=== PATIENT | male | born 1990 ===

== ENCOUNTER 2023-07-14 09:57 | Inpatient (IN) | payer OTHER ==
[2023-07-14 11:16] LABS: BASO % 0.9 % (0-2.0); EOS % 0.3 % (0-4.5); HEMOGLOBIN 8.1 GM/dL (11.7-16.9); LYMPH % 20.6 % (8-40); MCHC 32.4 g/dl (32.0-35.9); MEAN CELL VOLUME 86.5 fl (80-96); MEAN PLT VOLUME 7.6 fl (7.5-11.1); MONO % 6.2 % (3.8-10.2); PLATELET COUNT 196 10^3/uL (134-434); RBC 2.89 M/mm3 (4.00-5.60); RDW 15.4 % (11.9-15.9); WHITE BLOOD COUNT 11.8 K/mm3 (4.0-10.0)
[2023-07-14 11:23] LABS: VENOUS BASE EXCESS -7.7 mmol/L (-2-2); VENOUS O2 SATURATION 87.1 % (70-80); VENOUS PCO2 28.8 mmHg (38-52); VENOUS PH 7.376 (7.310-7.410)
[2023-07-14 11:25] LABS: INR 1.74 (0.83-1.09); PROTHROMBIN TIME (PATIENT) 20.1 SEC (9.7-13.0)
[2023-07-14 11:28] LABS: ACTIVATED PTT 33.5 SECONDS (25.2-36.5)
[2023-07-14 11:35] LABS: POTASSIUM 5.3 mmol/L (3.5-5.1)
[2023-07-14 11:37] LABS: BLOOD UREA NITROGEN 60.1 mg/dL (7-18); CALCIUM 7.7 mg/dL (8.5-10.1)
[2023-07-14 11:38] LABS: ALBUMIN 1.9 g/dl (3.4-5.0)
[2023-07-14 11:42] LABS: BILIRUBIN,TOTAL 0.8 mg/dL (0.2-1); TOT PROT 6.3 g/dl (6.4-8.2)
[2023-07-14] MEDS ORDERED: HEPARIN NA (PORCINE) 5,000 UNITS/ML 1ML VIAL IVPUSH ONE (14:42)
[2023-07-14] MEDS ORDERED: HEPARIN NA (PORCINE) 5,000 UNITS/ML 1ML VIAL IVPUSH PRN ×3 (15:32→15:38)
[2023-07-14] MEDS ORDERED: LACTATED RINGERS SOLUTION 1,000 ML/1,000 ML INFUS.BAG IV ONE (15:36)
[2023-07-14] MEDS ORDERED: FUROSEMIDE 40 MG/4 ML INJECTABLE VIAL IVPUSH ONE (15:36)
[2023-07-14] MEDS ORDERED: SODIUM CHLORIDE 0.9% 500 ML INFUS.BAG IV ONE (15:40)
[2023-07-14] MEDS ORDERED: HEPARIN - 25,000 UNIT in SODIUM CHLORIDE 495 ML IV SCH (15:45)
[2023-07-14] MEDS ORDERED: HEPARIN NA (PORCINE) 5,000 UNITS/ML 1ML VIAL ONE (16:16)
[2023-07-14] MEDS ORDERED: HEPARIN INFUSION - 25,000 UNITS/500 ML INFUS.BAG IVPB ONE (16:16)
[2023-07-14] MEDS ORDERED: FUROSEMIDE 40 MG/4 ML INJECTABLE VIAL ONE (16:16)
[2023-07-14] MEDS: HEPARIN INFUSION - 25,000 UNITS/500 ML INFUS.BAG IVPB SCH (16:42)
[2023-07-14] MEDS ORDERED: PIPERACILLIN/TAZOB 2.25 GM 2.25 GM/50 ML BAG IVPB ONE (18:29)
[2023-07-14] MEDS: PIPERACILLIN/TAZOB 2.25 GM 2.25 GM in DEXTROSE 5%-WATER - 50 ML IVPB SCH ×2 (18:30→22:05)
[2023-07-14 19:55] LABS: POTASSIUM 5.3 mmol/L (3.5-5.1)
[2023-07-14 19:58] LABS: BLOOD UREA NITROGEN 65.3 mg/dL (7-18)
[2023-07-14 20:01] LABS: CREATININE 5.2 mg/dL (0.55-1.3)
[2023-07-14 21:57] LABS: ARTERIAL BLD GAS O2 SATURATION 98.6 % (95-98); ARTERIAL BLOOD GAS BASE EXCESS -7.2 mmol/L (-2-2); ARTERIAL BLOOD GAS PO2 130.7 mmHg (80-100); ARTERIAL BLOOD GAS pH 7.369 (7.350-7.450)
[2023-07-14 21:58] LABS: EPI CELLS >36 /uL (0-25.1); HYALINE CASTS 22 /uL (0-3.1); PH,URINE 5.5 (5.0-8.0); URINE APPEARANCE TURBID; URINE BACTERIA 4 /uL (0-1359); URINE BILIRUBIN 1+ (NEGATIVE); URINE COLOR DK YELLOW; URINE GLUCOSE (UA) 1+ (NEGATIVE); URINE KETONE TRACE (NEGATIVE); URINE LEUK ESTERASE 1+ (NEGATIVE); URINE NITRITE NEGATIVE (NEGATIVE); URINE PROTEIN 4+ (NEGATIVE); URINE RBC 5 /uL (0-23.9); URINE WBC 482 /uL (0-25.8)
[2023-07-14] MEDS: MUPIROCIN 2% TOPICAL OINTMENT FOR DECOLONIZATION NS SCH (23:18)
[2023-07-14] MEDS: CHLORHEXIDINE GLUCONATE 4% CLEANSER FOR DECOLONIZATION TP SCH (23:18)
[2023-07-14 23:33] LABS: BASO % 0.6 % (0-2.0); EOS % 1.4 % (0-4.5); HEMATOCRIT 25.1 % (35.4-49); MCH 27.6 pg (25.7-33.7); MCHC 31.8 g/dl (32.0-35.9); MEAN CELL VOLUME 86.9 fl (80-96); MEAN PLT VOLUME 7.5 fl (7.5-11.1); MONO % 5.5 % (3.8-10.2); NEUT % 81.5 % (42.8-82.8); PLATELET COUNT 192 10^3/uL (134-434); RBC 2.89 M/mm3 (4.00-5.60); RDW 15.1 % (11.9-15.9); WHITE BLOOD COUNT 11.2 K/mm3 (4.0-10.0)
[2023-07-15] MEDS: HEPARIN NA (PORCINE) 5,000 UNITS/ML 1ML VIAL IVPUSH PRN ×4 (00:17→21:47)
[2023-07-15] MEDS: PIPERACILLIN/TAZOB 2.25 GM 2.25 GM in DEXTROSE 5%-WATER - 50 ML IVPB SCH ×3 (02:32→18:06)
[2023-07-15] MEDS ORDERED: FUROSEMIDE 40 MG/4 ML INJECTABLE VIAL IVPUSH SCH (06:00)
[2023-07-15 08:19] LABS: INR 1.5 (0.83-1.09); PROTHROMBIN TIME (PATIENT) 17.3 SEC (9.7-13.0)
[2023-07-15 08:22] LABS: ACTIVATED PTT 30.6 SECONDS (25.2-36.5)
[2023-07-15 08:44] LABS: ALBUMIN 1.8 g/dl (3.4-5.0); BLOOD UREA NITROGEN 64.6 mg/dL (7-18); CALCIUM 7.5 mg/dL (8.5-10.1); MAGNESIUM 1.7 mg/dL (1.8-2.4)
[2023-07-15 08:46] LABS: CREATININE 5.7 mg/dL (0.55-1.3)
[2023-07-15 08:48] LABS: BILIRUBIN,TOTAL 0.9 mg/dL (0.2-1); PHOSPHOROUS 5.4 mg/dL (2.5-4.9); TOT PROT 6.1 g/dl (6.4-8.2)
[2023-07-15] MEDS ORDERED: MAGNESIUM SULF 50% (8.12 MEQ/2 ML-1 GM VIAL) IVPB ONE (08:54)
[2023-07-15] MEDS: PANTOPRAZOLE SODIUM 40 MG VIAL IVPUSH SCH (09:27)
[2023-07-15] MEDS: MUPIROCIN 2% TOPICAL OINTMENT FOR DECOLONIZATION NS SCH ×2 (09:28→21:29)
[2023-07-15] MEDS: NYSTATIN 100,000 UNIT/GM TOPICAL CREAM 15 GM TUBE TP SCH ×2 (13:28→21:30)
[2023-07-15] MEDS: FUROSEMIDE 40 MG/4 ML INJECTABLE VIAL IVPUSH SCH (13:29)
[2023-07-15] MEDS ORDERED: VANCOMYCIN/WATER FOR INJ (PEG) 1,000 MG/200 ML BAG IVPB ONE (15:30)
[2023-07-15] MEDS: HEPARIN INFUSION - 25,000 UNITS/500 ML INFUS.BAG IVPB SCH (18:03)
[2023-07-15] MEDS: INSULIN SLIDING SCALE (NOVOLOG) 1 VIAL SQ SCH ×2 (18:42→21:30)
[2023-07-15] MEDS: CHLORHEXIDINE GLUCONATE 4% CLEANSER FOR DECOLONIZATION TP SCH (21:29)
[2023-07-16] MEDS: PIPERACILLIN/TAZOB 2.25 GM 2.25 GM in DEXTROSE 5%-WATER - 50 ML IVPB SCH ×3 (01:24→17:23)
[2023-07-16] MEDS: INSULIN SLIDING SCALE (NOVOLOG) 1 VIAL SQ SCH ×4 (06:28→21:21)
[2023-07-16] MEDS: FUROSEMIDE 40 MG/4 ML INJECTABLE VIAL IVPUSH SCH ×2 (06:31→13:11)
[2023-07-16 07:56] LABS: HEMATOCRIT 25.4 % (35.4-49); HEMOGLOBIN 8.3 GM/dL (11.7-16.9); MCH 28.2 pg (25.7-33.7); MCHC 32.6 g/dl (32.0-35.9); MEAN CELL VOLUME 86.5 fl (80-96); MEAN PLT VOLUME 7.7 fl (7.5-11.1); PLATELET COUNT 219 10^3/uL (134-434); RBC 2.93 M/mm3 (4.00-5.60); RDW 14.9 % (11.9-15.9); WHITE BLOOD COUNT 9.2 K/mm3 (4.0-10.0)
[2023-07-16 08:02] LABS: POTASSIUM 4.8 mmol/L (3.5-5.1)
[2023-07-16 08:04] LABS: CALCIUM 7.5 mg/dL (8.5-10.1)
[2023-07-16 08:05] LABS: ALBUMIN 1.8 g/dl (3.4-5.0); BLOOD UREA NITROGEN 65.5 mg/dL (7-18); INR 1.25 (0.83-1.09); PROTHROMBIN TIME (PATIENT) 14.5 SEC (9.7-13.0)
[2023-07-16 08:08] LABS: ACTIVATED PTT 30.4 SECONDS (25.2-36.5); CREATININE 6.1 mg/dL (0.55-1.3); PHOSPHOROUS 5.9 mg/dL (2.5-4.9)
[2023-07-16 08:09] LABS: TOT PROT 6.1 g/dl (6.4-8.2)
[2023-07-16 08:10] LABS: BILIRUBIN,TOTAL 0.6 mg/dL (0.2-1)
[2023-07-16] MEDS: HEPARIN INFUSION - 25,000 UNITS/500 ML INFUS.BAG IVPB SCH ×2 (08:15→17:23)
[2023-07-16] MEDS: HEPARIN NA (PORCINE) 5,000 UNITS/ML 1ML VIAL IVPUSH PRN ×3 (08:17→23:16)
[2023-07-16] MEDS: PANTOPRAZOLE SODIUM 40 MG VIAL IVPUSH SCH (09:27)
[2023-07-16] MEDS: NYSTATIN 100,000 UNIT/GM TOPICAL CREAM 15 GM TUBE TP SCH ×2 (09:27→21:21)
[2023-07-16] MEDS: MUPIROCIN 2% TOPICAL OINTMENT FOR DECOLONIZATION NS SCH ×2 (09:27→21:21)
[2023-07-16] MEDS ORDERED: METOLAZONE 5 MG TABLET PO ONE (09:45)
[2023-07-16] MEDS: NIFEdipine E.R. 90 MG TABLET PO SCH (09:53)
[2023-07-16] MEDS: ACETAMINOPHEN 500 MG TABLET (FP) PO PRN ×2 (09:54→20:27)
[2023-07-16] MEDS: CARVEDILOL 25 MG TABLET (FP) PO SCH ×2 (09:54→21:21)
[2023-07-16] MEDS ORDERED: INSULIN (NOVOLOG) ASPART 100 UNITS/ML 10ML VIAL ONE (16:23)
[2023-07-16] MEDS: oxyCODONE HCL 5 MG TABLET PO PRN (20:27)
[2023-07-16] MEDS: CHLORHEXIDINE GLUCONATE 4% CLEANSER FOR DECOLONIZATION TP SCH (21:21)
[2023-07-17] MEDS: PIPERACILLIN/TAZOB 2.25 GM 2.25 GM in DEXTROSE 5%-WATER - 50 ML IVPB SCH ×2 (01:42→10:15)
[2023-07-17 05:35] LABS: HEMATOCRIT 23.8 % (35.4-49); HEMOGLOBIN 7.9 GM/dL (11.7-16.9); MCH 28.4 pg (25.7-33.7); MCHC 33.3 g/dl (32.0-35.9); MEAN CELL VOLUME 85.3 fl (80-96); MEAN PLT VOLUME 7.2 fl (7.5-11.1); PLATELET COUNT 226 10^3/uL (134-434); RBC 2.79 M/mm3 (4.00-5.60); WHITE BLOOD COUNT 9.5 K/mm3 (4.0-10.0)
[2023-07-17 05:49] LABS: INR 1.28 (0.83-1.09); PROTHROMBIN TIME (PATIENT) 14.8 SEC (9.7-13.0)
[2023-07-17 05:50] LABS: ACTIVATED PTT 36.4 SECONDS (25.2-36.5)
[2023-07-17 05:55] LABS: POTASSIUM 4.2 mmol/L (3.5-5.1)
[2023-07-17 05:58] LABS: ALBUMIN 1.6 g/dl (3.4-5.0); BLOOD UREA NITROGEN 60.9 mg/dL (7-18); CALCIUM 7.4 mg/dL (8.5-10.1); MAGNESIUM 1.8 mg/dL (1.8-2.4)
[2023-07-17 06:01] LABS: CREATININE 6.2 mg/dL (0.55-1.3); PHOSPHOROUS 5.6 mg/dL (2.5-4.9)
[2023-07-17 06:03] LABS: BILIRUBIN,TOTAL 0.6 mg/dL (0.2-1); TOT PROT 5.8 g/dl (6.4-8.2)
[2023-07-17] MEDS: INSULIN SLIDING SCALE (NOVOLOG) 1 VIAL SQ SCH ×4 (06:03→22:00)
[2023-07-17] MEDS: FUROSEMIDE 40 MG/4 ML INJECTABLE VIAL IVPUSH SCH ×2 (06:03→13:40)
[2023-07-17] MEDS: HEPARIN NA (PORCINE) 5,000 UNITS/ML 1ML VIAL IVPUSH PRN ×2 (06:36→13:43)
[2023-07-17] MEDS: CARVEDILOL 25 MG TABLET (FP) PO SCH ×2 (10:18→22:57)
[2023-07-17] MEDS: PANTOPRAZOLE SODIUM 40 MG VIAL IVPUSH SCH (10:18)
[2023-07-17] MEDS: NIFEdipine E.R. 90 MG TABLET PO SCH (10:18)
[2023-07-17] MEDS: MUPIROCIN 2% TOPICAL OINTMENT FOR DECOLONIZATION NS SCH (10:21)
[2023-07-17] MEDS: NYSTATIN 100,000 UNIT/GM TOPICAL CREAM 15 GM TUBE TP SCH (10:22)
[2023-07-17] MEDS: HEPARIN INFUSION - 25,000 UNITS/500 ML INFUS.BAG IVPB SCH ×2 (10:48→23:08)
[2023-07-17] MEDS: ERTAPENEM SODIUM 0.5 GM in SODIUM CHLORIDE 50 ML IVPB SCH (17:39)
[2023-07-17] MEDS: oxyCODONE HCL 5 MG TABLET PO PRN (22:58)
[2023-07-18] MEDS: HEPARIN INFUSION - 25,000 UNITS/500 ML INFUS.BAG IVPB SCH ×4 (01:22→23:07)
[2023-07-18] MEDS: FUROSEMIDE 40 MG/4 ML INJECTABLE VIAL IVPUSH SCH (06:55)
[2023-07-18] MEDS: INSULIN SLIDING SCALE (NOVOLOG) 1 VIAL SQ SCH ×4 (07:07→21:34)
[2023-07-18] MEDS ORDERED: HEPARIN NA (PORCINE) 5,000 UNITS/ML 1ML VIAL IVPUSH PRN (07:46)
[2023-07-18 08:39] LABS: HEMATOCRIT 24.6 % (35.4-49); HEMOGLOBIN 8.1 GM/dL (11.7-16.9); MCH 28.5 pg (25.7-33.7); MCHC 33.1 g/dl (32.0-35.9); MEAN CELL VOLUME 86.1 fl (80-96); MEAN PLT VOLUME 7.2 fl (7.5-11.1); PLATELET COUNT 277 10^3/uL (134-434); RBC 2.86 M/mm3 (4.00-5.60); RDW 14.9 % (11.9-15.9); WHITE BLOOD COUNT 12.6 K/mm3 (4.0-10.0)
[2023-07-18 08:43] LABS: INR 1.24 (0.83-1.09); PROTHROMBIN TIME (PATIENT) 14.3 SEC (9.7-13.0)
[2023-07-18 08:48] LABS: POTASSIUM 4.2 mmol/L (3.5-5.1)
[2023-07-18 09:02] LABS: ALBUMIN 1.8 g/dl (3.4-5.0); CALCIUM 7.8 mg/dL (8.5-10.1)
[2023-07-18 09:05] LABS: CREATININE 6.6 mg/dL (0.55-1.3)
[2023-07-18 09:07] LABS: BILIRUBIN,TOTAL 0.5 mg/dL (0.2-1); TOT PROT 6.2 g/dl (6.4-8.2)
[2023-07-18] MEDS: PANTOPRAZOLE SODIUM 40 MG VIAL IVPUSH SCH (10:56)
[2023-07-18] MEDS: NIFEdipine E.R. 90 MG TABLET PO SCH (10:57)
[2023-07-18] MEDS: CARVEDILOL 25 MG TABLET (FP) PO SCH ×2 (10:57→21:28)
[2023-07-18] MEDS: ERTAPENEM SODIUM 0.5 GM in SODIUM CHLORIDE 50 ML IVPB SCH (10:58)
[2023-07-18] MEDS: NYSTATIN 100,000 UNIT/GM TOPICAL CREAM 15 GM TUBE TP SCH ×2 (10:58→21:29)
[2023-07-18] MEDS: HEPARIN NA (PORCINE) 5,000 UNITS/ML 1ML VIAL IVPUSH PRN ×2 (11:26→19:40)
[2023-07-18] MEDS ORDERED: FUROSEMIDE 40 MG/4 ML INJECTABLE VIAL IVPUSH SCH (14:00)
[2023-07-18 19:11] LABS: INR 1.17 (0.83-1.09); PROTHROMBIN TIME (PATIENT) 13.6 SEC (9.7-13.0)
[2023-07-18 19:14] LABS: ACTIVATED PTT 30.8 SECONDS (25.2-36.5)
[2023-07-19] MEDS: FUROSEMIDE 40 MG/4 ML INJECTABLE VIAL IVPUSH SCH ×2 (05:22→13:21)
[2023-07-19] MEDS: INSULIN SLIDING SCALE (NOVOLOG) 1 VIAL SQ SCH ×4 (06:03→21:20)
[2023-07-19] MEDS: HEPARIN INFUSION - 25,000 UNITS/500 ML INFUS.BAG IVPB SCH ×2 (09:11→18:02)
[2023-07-19] MEDS: PANTOPRAZOLE SODIUM 40 MG VIAL IVPUSH SCH (09:17)
[2023-07-19] MEDS: CARVEDILOL 25 MG TABLET (FP) PO SCH ×2 (09:17→22:01)
[2023-07-19] MEDS: NIFEdipine E.R. 90 MG TABLET PO SCH (09:17)
[2023-07-19] MEDS: ERTAPENEM SODIUM 0.5 GM in SODIUM CHLORIDE 50 ML IVPB SCH (09:19)
[2023-07-19] MEDS: NYSTATIN 100,000 UNIT/GM TOPICAL CREAM 15 GM TUBE TP SCH ×2 (10:22→22:02)
[2023-07-19 10:33] LABS: HEMATOCRIT 26.3 % (35.4-49); HEMOGLOBIN 8.5 GM/dL (11.7-16.9); MCH 27.5 pg (25.7-33.7); MCHC 32.1 g/dl (32.0-35.9); MEAN CELL VOLUME 85.5 fl (80-96); MEAN PLT VOLUME 6.9 fl (7.5-11.1); PLATELET COUNT 327 10^3/uL (134-434); RBC 3.08 M/mm3 (4.00-5.60); RDW 15.2 % (11.9-15.9)
[2023-07-19 10:39] LABS: INR 1.23 (0.83-1.09); PROTHROMBIN TIME (PATIENT) 14.2 SEC (9.7-13.0)
[2023-07-19] MEDS: LINEZOLID 600 MG TABLET (RESTRICTED TO ID) PO SCH ×2 (11:00→22:02)
[2023-07-19 11:14] LABS: POTASSIUM 4.1 mmol/L (3.5-5.1)
[2023-07-19 12:12] LABS: BLOOD UREA NITROGEN 62.5 mg/dL (7-18)
[2023-07-19 12:13] LABS: ALBUMIN 1.8 g/dl (3.4-5.0); CALCIUM 7.7 mg/dL (8.5-10.1)
[2023-07-19 12:17] LABS: CREATININE 6.7 mg/dL (0.55-1.3)
[2023-07-19 12:18] LABS: BILIRUBIN,TOTAL 0.3 mg/dL (0.2-1); TOT PROT 6.3 g/dl (6.4-8.2)
[2023-07-19] MEDS: SODIUM BICARBONATE 650 MG TABLET PO SCH ×2 (14:49→22:02)
[2023-07-20] MEDS: oxyCODONE HCL 5 MG TABLET PO PRN ×2 (02:35→22:11)
[2023-07-20] MEDS: HEPARIN INFUSION - 25,000 UNITS/500 ML INFUS.BAG IVPB SCH ×3 (02:38→22:19)
[2023-07-20] MEDS: FUROSEMIDE 40 MG/4 ML INJECTABLE VIAL IVPUSH SCH ×2 (06:13→15:18)
[2023-07-20] MEDS: SODIUM BICARBONATE 650 MG TABLET PO SCH ×3 (06:14→22:15)
[2023-07-20] MEDS: INSULIN SLIDING SCALE (NOVOLOG) 1 VIAL SQ SCH ×4 (06:17→22:19)
[2023-07-20 10:53] LABS: HEMATOCRIT 26.9 % (35.4-49); HEMOGLOBIN 8.9 GM/dL (11.7-16.9); MCH 27.9 pg (25.7-33.7); MCHC 32.9 g/dl (32.0-35.9); MEAN CELL VOLUME 84.9 fl (80-96); PLATELET COUNT 388 10^3/uL (134-434); RBC 3.17 M/mm3 (4.00-5.60); RDW 15.4 % (11.9-15.9); WHITE BLOOD COUNT 13.7 K/mm3 (4.0-10.0)
[2023-07-20] MEDS: PANTOPRAZOLE SODIUM 40 MG VIAL IVPUSH SCH (10:54)
[2023-07-20] MEDS: CARVEDILOL 25 MG TABLET (FP) PO SCH ×2 (10:54→22:11)
[2023-07-20] MEDS: NYSTATIN 100,000 UNIT/GM TOPICAL CREAM 15 GM TUBE TP SCH ×2 (10:55→22:14)
[2023-07-20] MEDS: ERTAPENEM SODIUM 0.5 GM in SODIUM CHLORIDE 50 ML IVPB SCH (10:59)
[2023-07-20] MEDS: NIFEdipine E.R. 90 MG TABLET PO SCH (10:59)
[2023-07-20] MEDS: LINEZOLID 600 MG TABLET (RESTRICTED TO ID) PO SCH ×2 (11:27→23:18)
[2023-07-20] MEDS: DIPHENOXYLATE 2.5/ATROPINE.025 1 COMBO TABLET PO PRN (13:51)
[2023-07-21] MEDS: SODIUM BICARBONATE 650 MG TABLET PO SCH ×3 (05:35→21:51)
[2023-07-21] MEDS: FUROSEMIDE 40 MG/4 ML INJECTABLE VIAL IVPUSH SCH ×2 (05:35→13:13)
[2023-07-21] MEDS: INSULIN SLIDING SCALE (NOVOLOG) 1 VIAL SQ SCH ×4 (06:38→21:51)
[2023-07-21] MEDS: HEPARIN INFUSION - 25,000 UNITS/500 ML INFUS.BAG IVPB SCH ×2 (06:38→17:01)
[2023-07-21] MEDS: LINEZOLID 600 MG TABLET (RESTRICTED TO ID) PO SCH ×2 (09:41→21:52)
[2023-07-21] MEDS: NIFEdipine E.R. 90 MG TABLET PO SCH (09:41)
[2023-07-21] MEDS: ERTAPENEM SODIUM 0.5 GM in SODIUM CHLORIDE 50 ML IVPB SCH (09:41)
[2023-07-21] MEDS: CARVEDILOL 25 MG TABLET (FP) PO SCH ×2 (09:41→21:51)
[2023-07-21] MEDS: LACTOBACILLUS ACIDOPHILUS 1 TABLET PO SCH (09:41)
[2023-07-21] MEDS: PANTOPRAZOLE SODIUM 40 MG VIAL IVPUSH SCH (09:42)
[2023-07-21] MEDS: NYSTATIN 100,000 UNIT/GM TOPICAL CREAM 15 GM TUBE TP SCH ×2 (09:52→21:52)
[2023-07-21 13:53] VITALS: BMI 47.3
[2023-07-21] MEDS: DIPHENOXYLATE 2.5/ATROPINE.025 1 COMBO TABLET PO PRN (18:56)
[2023-07-22] MEDS: ACETAMINOPHEN 500 MG TABLET (FP) PO PRN (00:15)
[2023-07-22] MEDS: HEPARIN INFUSION - 25,000 UNITS/500 ML INFUS.BAG IVPB SCH ×3 (02:54→12:45)
[2023-07-22] MEDS: INSULIN SLIDING SCALE (NOVOLOG) 1 VIAL SQ SCH ×4 (06:33→21:54)
[2023-07-22] MEDS: SODIUM BICARBONATE 650 MG TABLET PO SCH ×3 (06:47→21:45)
[2023-07-22] MEDS: FUROSEMIDE 40 MG/4 ML INJECTABLE VIAL IVPUSH SCH ×2 (06:48→13:02)
[2023-07-22 10:08] LABS: HEMATOCRIT 27.7 % (35.4-49); HEMOGLOBIN 9.2 GM/dL (11.7-16.9); MCH 28.2 pg (25.7-33.7); MCHC 33.1 g/dl (32.0-35.9); MEAN CELL VOLUME 85.1 fl (80-96); MEAN PLT VOLUME 6.7 fl (7.5-11.1); PLATELET COUNT 445 10^3/uL (134-434); RBC 3.25 M/mm3 (4.00-5.60); RDW 15.4 % (11.9-15.9); WHITE BLOOD COUNT 13.5 K/mm3 (4.0-10.0)
[2023-07-22 10:43] LABS: POTASSIUM 3.4 mmol/L (3.5-5.1)
[2023-07-22] MEDS: LINEZOLID 600 MG TABLET (RESTRICTED TO ID) PO SCH ×2 (10:44→21:46)
[2023-07-22] MEDS: CARVEDILOL 25 MG TABLET (FP) PO SCH ×2 (10:44→21:44)
[2023-07-22] MEDS: PANTOPRAZOLE SODIUM 40 MG VIAL IVPUSH SCH (10:44)
[2023-07-22] MEDS: NIFEdipine E.R. 90 MG TABLET PO SCH (10:44)
[2023-07-22] MEDS: VITAMIN B COMP W-C 1 EA TABLET (NEPHRO-VITE) PO SCH (10:44)
[2023-07-22] MEDS: LACTOBACILLUS ACIDOPHILUS 1 TABLET PO SCH (10:44)
[2023-07-22] MEDS: NYSTATIN 100,000 UNIT/GM TOPICAL CREAM 15 GM TUBE TP SCH ×2 (10:45→22:10)
[2023-07-22] MEDS: ERTAPENEM SODIUM 0.5 GM in SODIUM CHLORIDE 50 ML IVPB SCH (10:53)
[2023-07-22 11:03] LABS: CALCIUM 8.3 mg/dL (8.5-10.1)
[2023-07-22 11:04] LABS: ALBUMIN 1.8 g/dl (3.4-5.0)
[2023-07-22 11:05] LABS: BLOOD UREA NITROGEN 48.3 mg/dL (7-18)
[2023-07-22] MEDS ORDERED: INSULIN SLIDING SCALE (NOVOLOG) 1 VIAL SQ ONE (11:06)
[2023-07-22 11:07] LABS: CREATININE 5.6 mg/dL (0.55-1.3)
[2023-07-22 11:08] LABS: BILIRUBIN,TOTAL 0.5 mg/dL (0.2-1)
[2023-07-22 11:09] LABS: TOT PROT 6.4 g/dl (6.4-8.2)
[2023-07-22] MEDS ORDERED: POTASSIUM CHLORIDE TABS 20 MEQ TABLET.ER (FP) PO ONE (13:30)
[2023-07-22] MEDS ORDERED: IRON SUCROSE INJECTION 200 MG in SODIUM CHLORIDE 90 ML IVPB ONE (14:00)
[2023-07-23] MEDS: HEPARIN INFUSION - 25,000 UNITS/500 ML INFUS.BAG IVPB SCH ×2 (01:11→12:09)
[2023-07-23] MEDS: SODIUM BICARBONATE 650 MG TABLET PO SCH ×3 (05:58→21:18)
[2023-07-23] MEDS: FUROSEMIDE 40 MG/4 ML INJECTABLE VIAL IVPUSH SCH ×2 (05:58→13:37)
[2023-07-23] MEDS: INSULIN SLIDING SCALE (NOVOLOG) 1 VIAL SQ SCH ×4 (06:22→21:24)
[2023-07-23] MEDS: CARVEDILOL 25 MG TABLET (FP) PO SCH ×2 (09:05→21:17)
[2023-07-23] MEDS: ERTAPENEM SODIUM 0.5 GM in SODIUM CHLORIDE 50 ML IVPB SCH (09:05)
[2023-07-23] MEDS: NIFEdipine E.R. 90 MG TABLET PO SCH (09:05)
[2023-07-23] MEDS: VITAMIN B COMP W-C 1 EA TABLET (NEPHRO-VITE) PO SCH (09:05)
[2023-07-23] MEDS: LACTOBACILLUS ACIDOPHILUS 1 TABLET PO SCH (09:05)
[2023-07-23] MEDS: PANTOPRAZOLE SODIUM 40 MG VIAL IVPUSH SCH (09:05)
[2023-07-23] MEDS: LINEZOLID 600 MG TABLET (RESTRICTED TO ID) PO SCH (09:06)
[2023-07-23 10:23] LABS: INR 1.24 (0.83-1.09); PROTHROMBIN TIME (PATIENT) 14.4 SEC (9.7-13.0)
[2023-07-23 10:26] LABS: ACTIVATED PTT 57.1 SECONDS (25.2-36.5)
[2023-07-23 10:51] LABS: POTASSIUM 3.2 mmol/L (3.5-5.1)
[2023-07-23] MEDS: NYSTATIN 100,000 UNIT/GM TOPICAL CREAM 15 GM TUBE TP SCH ×2 (11:09→21:18)
[2023-07-23 11:17] LABS: CALCIUM 8.1 mg/dL (8.5-10.1)
[2023-07-23 11:18] LABS: BLOOD UREA NITROGEN 42.6 mg/dL (7-18)
[2023-07-23 11:21] LABS: CREATININE 5.3 mg/dL (0.55-1.3)
[2023-07-23 11:22] LABS: BILIRUBIN,TOTAL 0.2 mg/dL (0.2-1)
[2023-07-23 11:23] LABS: TOT PROT 6.6 g/dl (6.4-8.2)
[2023-07-23] MEDS ORDERED: POTASSIUM CHLORIDE ORAL LIQUID 20 MEQ/15 ML PO ONE (13:30)
[2023-07-23] MEDS: AMOXICILLIN 500 MG CAPSULE (FP) PO SCH ×2 (13:37→21:18)
[2023-07-23] MEDS: APIXABAN 5 MG TABLET PO SCH (21:18)
[2023-07-23 22:08] LABS: ANTIGLOMERULAR BASEMENT MEN.AB <0.2 units (0.0-0.9); ATYPICAL pANCA <1:20 titer (Neg:<1:20); C-ANCA <1:20 titer (Neg:<1:20)
[2023-07-24] MEDS: SODIUM BICARBONATE 650 MG TABLET PO SCH ×3 (05:52→21:42)
[2023-07-24] MEDS: FUROSEMIDE 40 MG/4 ML INJECTABLE VIAL IVPUSH SCH ×2 (05:52→14:01)
[2023-07-24] MEDS: AMOXICILLIN 500 MG CAPSULE (FP) PO SCH ×3 (05:52→21:41)
[2023-07-24] MEDS: INSULIN SLIDING SCALE (NOVOLOG) 1 VIAL SQ SCH ×4 (05:59→21:42)
[2023-07-24] MEDS: VITAMIN B COMP W-C 1 EA TABLET (NEPHRO-VITE) PO SCH (10:55)
[2023-07-24] MEDS: NYSTATIN 100,000 UNIT/GM TOPICAL CREAM 15 GM TUBE TP SCH ×2 (10:55→22:38)
[2023-07-24] MEDS: LACTOBACILLUS ACIDOPHILUS 1 TABLET PO SCH (10:55)
[2023-07-24] MEDS: APIXABAN 5 MG TABLET PO SCH ×2 (10:55→21:41)
[2023-07-24] MEDS: NIFEdipine E.R. 90 MG TABLET PO SCH (10:55)
[2023-07-24] MEDS: CARVEDILOL 25 MG TABLET (FP) PO SCH ×2 (10:55→21:42)
[2023-07-24] MEDS: PANTOPRAZOLE 40 MG TABLET PO SCH (10:55)
[2023-07-24] MEDS: ACETAMINOPHEN 500 MG TABLET (FP) PO PRN (21:41)
[2023-07-25] MEDS: FUROSEMIDE 40 MG/4 ML INJECTABLE VIAL IVPUSH SCH ×3 (06:38→15:09)
[2023-07-25] MEDS: SODIUM BICARBONATE 650 MG TABLET PO SCH ×3 (06:38→22:46)
[2023-07-25] MEDS: AMOXICILLIN 500 MG CAPSULE (FP) PO SCH ×3 (06:38→22:50)
[2023-07-25] MEDS: INSULIN SLIDING SCALE (NOVOLOG) 1 VIAL SQ SCH ×4 (06:40→22:50)
[2023-07-25] MEDS: VITAMIN B COMP W-C 1 EA TABLET (NEPHRO-VITE) PO SCH (10:03)
[2023-07-25] MEDS: CARVEDILOL 25 MG TABLET (FP) PO SCH ×2 (10:03→22:46)
[2023-07-25] MEDS: NIFEdipine E.R. 90 MG TABLET PO SCH (10:03)
[2023-07-25] MEDS: APIXABAN 5 MG TABLET PO SCH ×2 (10:03→22:46)
[2023-07-25] MEDS: LACTOBACILLUS ACIDOPHILUS 1 TABLET PO SCH (10:03)
[2023-07-25] MEDS: ACETAMINOPHEN 500 MG TABLET (FP) PO PRN (10:03)
[2023-07-25] MEDS: PANTOPRAZOLE 40 MG TABLET PO SCH (10:04)
[2023-07-25] MEDS: NYSTATIN 100,000 UNIT/GM TOPICAL CREAM 15 GM TUBE TP SCH ×3 (10:06→22:52)
[2023-07-25] MEDS: FUROSEMIDE 40 MG TABLET (FP) PO SCH (16:46)
[2023-07-26] MEDS ORDERED: MELATONIN 5 MG TABLETS PO ONE (03:45)
[2023-07-26] MEDS: FUROSEMIDE 40 MG TABLET (FP) PO SCH ×2 (05:51→13:45)
[2023-07-26] MEDS: SODIUM BICARBONATE 650 MG TABLET PO SCH ×3 (05:51→21:38)
[2023-07-26] MEDS: AMOXICILLIN 500 MG CAPSULE (FP) PO SCH ×3 (06:29→21:38)
[2023-07-26] MEDS: INSULIN SLIDING SCALE (NOVOLOG) 1 VIAL SQ SCH ×4 (06:29→21:42)
[2023-07-26 09:33] VITALS: RESP 18
[2023-07-26] MEDS: VITAMIN B COMP W-C 1 EA TABLET (NEPHRO-VITE) PO SCH (09:51)
[2023-07-26] MEDS: PANTOPRAZOLE 40 MG TABLET PO SCH (09:51)
[2023-07-26] MEDS: NIFEdipine E.R. 90 MG TABLET PO SCH (09:51)
[2023-07-26] MEDS: APIXABAN 5 MG TABLET PO SCH ×2 (09:51→21:38)
[2023-07-26] MEDS: CARVEDILOL 25 MG TABLET (FP) PO SCH ×2 (09:51→21:38)
[2023-07-26] MEDS: LACTOBACILLUS ACIDOPHILUS 1 TABLET PO SCH (09:51)
[2023-07-26] MEDS: NYSTATIN 100,000 UNIT/GM TOPICAL CREAM 15 GM TUBE TP SCH ×2 (09:52→21:39)
[2023-07-26 22:44] VITALS: BP 144/84; PULSE 105; TEMP 97.5
== END 2023-07-26 22:30 | DRG 721 ==
LOC: JER 09:57 → JERBED 11:01 → JICU 21:11 → J6S 07-17 18:59
PROVIDERS: ADMIT Family Medicine; ATTEND Family Medicine
DX: T85.79XA Infection and inflammatory reaction due to other internal prosthetic devices, implants and grafts, initial encounter (principal); A41.89 Other specified sepsis; N40.0 Benign prostatic hyperplasia without lower urinary tract symptoms; E66.01 Morbid (severe) obesity due to excess calories; Z68.42 Body mass index [BMI] 45.0-49.9, adult; N17.9 Acute kidney failure, unspecified; I26.99 Other pulmonary embolism without acute cor pulmonale; D64.9 Anemia, unspecified; K57.90 Diverticulosis of intestine, part unspecified, without perforation or abscess without bleeding; M86.9 Osteomyelitis, unspecified; I12.0 Hypertensive chronic kidney disease with stage 5 chronic kidney disease or end stage renal disease; N18.9 Chronic kidney disease, unspecified; E11.22 Type 2 diabetes mellitus with diabetic chronic kidney disease; E83.42 Hypomagnesemia; J96.01 Acute respiratory failure with hypoxia; E87.70 Fluid overload, unspecified; Y83.8 Other surgical procedures as the cause of abnormal reaction of the patient, or of later complication, without mention of misadventure at the time of the procedure; Y92.9 Unspecified place or not applicable; Z89.511 Acquired absence of right leg below knee
CPT/HCPCS: 0241U-QW; 36415; 36600; 71045-TC-FY; 71250-TC; 74176-TC; 76705-TC; 76775-TC; 76856-TC; 80048; 80053; 81003; 82010; 82272; 82550; 82553; 82803; 82962; 82977; 83010; 83036; 83516; 83520; 83540; 83550; 83605; 83690; 83735; 84100; 84132; 84155; 84165; 84443; 84484; 85025; 85027; 85045; 85610; 85730; 86038; 86160; 86225; 86256; 86704; 86803; 86850; 86900; 86901; 87040; 87070; 87075; 87086; 87186; 87205; 87340; 87517; 93005; 93010; 93306-TC; 97116-GP; 97162-GP; 99285-25; G0480; J1644; J1756

== ENCOUNTER 2023-09-16 02:00 | Inpatient (IN) | payer OTHER ==
[2023-09-16 02:35] VITALS: BMI 38.9
[2023-09-16] MEDS ORDERED: ACETAMINOPHEN 325 MG TABLET (FP) ONE (04:08)
[2023-09-16] MEDS: ACETAMINOPHEN 500 MG TABLET (FP) PO ONE (04:16)
[2023-09-16 04:32] LABS: INR 1.09 (0.83-1.09); PROTHROMBIN TIME (PATIENT) 12.6 SEC (9.7-13.0)
[2023-09-16 04:35] LABS: ACTIVATED PTT 30.7 SECONDS (25.2-36.5)
[2023-09-16 04:53] LABS: BASO % 0.2 % (0-2.0); EOS % 4.2 % (0-4.5); HEMATOCRIT 31.2 % (35.4-49); HEMOGLOBIN 10.3 GM/dL (11.7-16.9); LYMPH % 27.5 % (8-40); MCHC 32.9 g/dl (32.0-35.9); MEAN CELL VOLUME 88.1 fl (80-96); MEAN PLT VOLUME 7.2 fl (7.5-11.1); MONO % 5.8 % (3.8-10.2); NEUT % 62.3 % (42.8-82.8); PLATELET COUNT 297 10^3/uL (134-434); RBC 3.54 M/mm3 (4.00-5.60); WHITE BLOOD COUNT 16.4 K/mm3 (4.0-10.0)
[2023-09-16 05:02] LABS: CHLORIDE 120 mmol/L (98-107); SODIUM 144 mmol/L (136-145)
[2023-09-16 05:04] LABS: CALCIUM 8.1 mg/dL (8.5-10.1)
[2023-09-16 05:05] LABS: BLOOD UREA NITROGEN 29.7 mg/dL (7-18); CO2 17 mmol/L (21-32); GLUCOSE,RANDOM 153 mg/dL (74-106)
[2023-09-16 05:08] LABS: CREATININE 3.9 mg/dL (0.55-1.3); SGOT/AST 15 U/L (15-37); SGPT/ALT 16 U/L (13-61)
[2023-09-16 05:09] LABS: TOT PROT 6.2 g/dl (6.4-8.2)
[2023-09-16 05:10] LABS: BILIRUBIN,TOTAL 0.2 mg/dL (0.2-1)
[2023-09-16 05:11] LABS: ALK PHOS 176 U/L (45-117)
[2023-09-16 05:13] LABS: ANION GAP 7 mmol/L (4-13); POTASSIUM 2.9 mmol/L (3.5-5.1)
[2023-09-16] MEDS ORDERED: POTASSIUM CHLORIDE TABS 20 MEQ TABLET.ER (FP) PO ONE (05:19)
[2023-09-16] MEDS: POTASSIUM CHLORIDE TABS 20 MEQ TABLET.ER (FP) PO ONE (05:35)
[2023-09-16] MEDS ORDERED: MAGNESIUM 1GM/D5W - 2 GM/200 ML IVPB IVPB ONE (05:38)
[2023-09-16] MEDS: MAGNESIUM SULF 50% (8.12 MEQ/2 ML-1 GM VIAL) IVPB ONE (05:46)
[2023-09-16] MEDS: INSULIN ASPART SLIDING SCALE (NOVOLOG) 1 VIAL SQ SCH (16:30)
[2023-09-16] MEDS ORDERED: PIPERACILLIN/TAZOB 2.25 GM 2.25 GM/50 ML BAG IVPB ONE (16:43)
[2023-09-16] MEDS: PIPERACILLIN/TAZOB 2.25 GM 2.25 GM in DEXTROSE 5%-WATER - 50 ML IVPB SCH (16:45)
[2023-09-16] MEDS ORDERED: KCL 10 MEQ IVPB 10 MEQ/100 ML INFUS.BAG IVPB ONE ×2 (18:04→19:08)
[2023-09-16] MEDS: KCL 10 MEQ IVPB 10 MEQ/100 ML INFUS.BAG IVPB SCH (18:08)
[2023-09-16] MEDS: SENNOSIDES 8.8 MG/5 ML SYRUP PO SCH (21:24)
[2023-09-16] MEDS: NYSTATIN 100,000 UNIT/GM TOPICAL CREAM 15 GM TUBE TP SCH (22:19)
[2023-09-16] MEDS: INSULIN (LEVEMIR) 100 UNITS/ML UNITS SQ SCH (22:30)
[2023-09-17] MEDS ORDERED: PIPERACILLIN/TAZOB 2.25 GM 2.25 GM/50 ML BAG IVPB ONE ×4 (01:59→17:11)
[2023-09-17] MEDS ORDERED: ACETAMINOPHEN 325 MG TABLET (FP) ONE (01:59)
[2023-09-17] MEDS: ACETAMINOPHEN 325 MG TABLET (FP) PO PRN (02:04)
[2023-09-17] MEDS: FUROSEMIDE 40 MG TABLET (FP) PO SCH (10:02)
[2023-09-17] MEDS: PANTOPRAZOLE 40 MG TABLET PO SCH (10:02)
[2023-09-17] MEDS: TAMSULOSIN HCL 0.4 MG CAP PO SCH (10:02)
[2023-09-17] MEDS ORDERED: POTASSIUM CHLORIDE ORAL LIQUID 20 MEQ/15 ML ONE (14:49)
[2023-09-17] MEDS: POTASSIUM CHLORIDE ORAL LIQUID 20 MEQ/15 ML PO ONE (14:50)
[2023-09-17] MEDS: ENOXAPARIN NA (PORCINE) 120 MG/0.8 ML DISP.SYRIN SQ ONE (14:50)
[2023-09-17] MEDS: SENNOSIDES 8.6MG TABLET (FP) PO SCH (22:00)
[2023-09-18] MEDS ORDERED: PIPERACILLIN/TAZOB 2.25 GM 2.25 GM/50 ML BAG IVPB ONE ×2 (01:45→09:11)
[2023-09-18 07:47] LABS: BASO % 0.3 % (0-2.0); HEMATOCRIT 28.7 % (35.4-49); HEMOGLOBIN 9.5 GM/dL (11.7-16.9); LYMPH % 25.1 % (8-40); MCH 29.3 pg (25.7-33.7); MCHC 33.2 g/dl (32.0-35.9); MEAN CELL VOLUME 88.3 fl (80-96); MEAN PLT VOLUME 7.3 fl (7.5-11.1); MONO % 5.1 % (3.8-10.2); NEUT % 66.5 % (42.8-82.8); PLATELET COUNT 283 10^3/uL (134-434); RBC 3.25 M/mm3 (4.00-5.60); RDW 17.2 % (11.9-15.9); WHITE BLOOD COUNT 16.6 K/mm3 (4.0-10.0)
[2023-09-18 08:16] LABS: POTASSIUM 3.1 mmol/L (3.5-5.1)
[2023-09-18 08:21] LABS: ALBUMIN 1.8 g/dl (3.4-5.0); BLOOD UREA NITROGEN 26.6 mg/dL (7-18); CALCIUM 7.8 mg/dL (8.5-10.1); MAGNESIUM 1.5 mg/dL (1.8-2.4)
[2023-09-18 08:24] LABS: CREATININE 3.7 mg/dL (0.55-1.3)
[2023-09-18 08:26] LABS: BILIRUBIN,TOTAL 0.3 mg/dL (0.2-1); TOT PROT 5.8 g/dl (6.4-8.2)
[2023-09-18] MEDS: NIFEdipine E.R. 90 MG TABLET PO SCH (09:08)
[2023-09-18] MEDS: CARVEDILOL 25 MG TABLET (FP) PO SCH ×2 (09:08→21:18)
[2023-09-18] MEDS: NIFEdipine E.R. 30 MG TABLET PO SCH (09:37)
[2023-09-18] MEDS: KCL 10 MEQ IVPB 10 MEQ/100 ML INFUS.BAG IVPB SCH ×2 (09:37→16:40)
[2023-09-18] MEDS ORDERED: ONDANSETRON 4 MG/2 ML VIAL ONE (10:12)
[2023-09-18] MEDS ORDERED: KETOROLAC TROMETHAMINE 30 MG/1 ML VIAL ONE ×2 (10:12→15:16)
[2023-09-18] MEDS ORDERED: LIDOCAINE HCL/PF 2% SDV 5ML VIAL ONE (10:12)
[2023-09-18] MEDS ORDERED: DEXAMETHASONE SOD PHOSPHATE 4 MG/1 ML VIAL ONE (10:12)
[2023-09-18] MEDS ORDERED: PROPOFOL 40 ML ONE (10:13)
[2023-09-18] MEDS ORDERED: MIDAZOLAM HCL 2 MG/2 ML SINGLE DOSE VIAL ONE (10:13)
[2023-09-18] MEDS ORDERED: ROCURONIUM BROMIDE 50 MG/5 ML SYRINGE ONE ×2 (10:13→11:50)
[2023-09-18] MEDS ORDERED: HEPARIN NA (PORCINE) 5,000 UNITS/ML 1ML VIAL ONE (10:48)
[2023-09-18] MEDS ORDERED: BUPIVACAINE HCL/PF 0.25% (2.5MG/ML) 10 ML VIAL ONE (10:48)
[2023-09-18] MEDS ORDERED: ACETAMINOPHEN INJECTION 100 ML IVPB ONE (11:56)
[2023-09-18] MEDS: BUPIVACAINE HCL/PF 0.25% (2.5MG/ML) 10 ML VIAL IJ ONE ×2 (12:02)
[2023-09-18] MEDS ORDERED: NEOSTIGMINE METHYLSULFATE 0.5 MG/1 ML - 10 ML MDV ONE (13:11)
[2023-09-18] MEDS ORDERED: MAGNESIUM SULF 50% (8.12 MEQ/2 ML-1 GM VIAL) IVPB ONE (13:30)
[2023-09-18] MEDS ORDERED: GLYCOPYRROLATE 0.2 MG/1 ML VIAL ONE (14:07)
[2023-09-18] MEDS ORDERED: PROMETHAZINE HCL 25 MG/1 ML VIAL IVPB PRN ×2 (14:29→17:21)
[2023-09-18] MEDS ORDERED: ONDANSETRON 4 MG/2 ML VIAL IVPUSH PRN ×2 (14:29→17:21)
[2023-09-18] MEDS: KETOROLAC TROMETHAMINE 30 MG/1 ML VIAL IVPUSH ONE (15:18)
[2023-09-18] MEDS: MAGNESIUM 1GM/D5W 100ML - 100 ML IVPB IVPB ONE (15:26)
[2023-09-18] MEDS: LACTATED RINGERS SOLUTION 1,000 ML IV SCH ×2 (15:40→16:40)
[2023-09-18] MEDS: LABETALOL HCL 5 MG/1 ML (100MG/20 ML VIAL) IVPUSH ONE (18:32)
[2023-09-18] MEDS: ACETAMINOPHEN 325 MG TABLET (FP) PO PRN (21:18)
[2023-09-18] MEDS: SENNOSIDES 8.6MG TABLET (FP) PO SCH (21:18)
[2023-09-18] MEDS: POTASSIUM CHLORIDE ORAL LIQUID 20 MEQ/15 ML PO ONE (21:18)
[2023-09-18] MEDS: INSULIN (LEVEMIR) 100 UNITS/ML UNITS SQ SCH (21:20)
[2023-09-18] MEDS: INSULIN ASPART SLIDING SCALE (NOVOLOG) 1 VIAL SQ SCH (21:33)
[2023-09-18] MEDS: NYSTATIN 100,000 UNIT/GM TOPICAL CREAM 15 GM TUBE TP SCH (21:34)
[2023-09-18] MEDS: PIPERACILLIN/TAZOB 2.25 GM 2.25 GM in DEXTROSE 5%-WATER - 50 ML IVPB SCH (22:51)
[2023-09-19 02:43] LABS: POTASSIUM 3.2 mmol/L (3.5-5.1)
[2023-09-19 02:44] LABS: CALCIUM 7.9 mg/dL (8.5-10.1)
[2023-09-19 02:45] LABS: BLOOD UREA NITROGEN 28.7 mg/dL (7-18)
[2023-09-19] MEDS: ACETAMINOPHEN 1000 MG/100 ML BAG IVPB ONE (05:53)
[2023-09-19 10:28] LABS: HEMATOCRIT 25.8 % (35.4-49); HEMOGLOBIN 8.4 GM/dL (11.7-16.9); MCH 29.2 pg (25.7-33.7); MCHC 32.7 g/dl (32.0-35.9); MEAN CELL VOLUME 89.3 fl (80-96); MEAN PLT VOLUME 7.4 fl (7.5-11.1); PLATELET COUNT 256 10^3/uL (134-434); RBC 2.89 M/mm3 (4.00-5.60); RDW 17.3 % (11.9-15.9); WHITE BLOOD COUNT 21.9 K/mm3 (4.0-10.0)
[2023-09-19 10:59] LABS: ANISOCYTOSIS 0; MACROCYTOSIS 0
[2023-09-19] MEDS: PANTOPRAZOLE 40 MG TABLET PO SCH (11:23)
[2023-09-19] MEDS: TAMSULOSIN HCL 0.4 MG CAP PO SCH (11:23)
[2023-09-19] MEDS: NIFEdipine E.R. 90 MG TABLET PO SCH (11:23)
[2023-09-19] MEDS: FUROSEMIDE 40 MG TABLET (FP) PO SCH (11:24)
[2023-09-19] MEDS: KCL 10 MEQ IVPB 10 MEQ/100 ML INFUS.BAG IVPB SCH ×3 (11:26→21:59)
[2023-09-19 16:18] LABS: HEMATOCRIT 25.5 % (35.4-49); HEMOGLOBIN 8.4 GM/dL (11.7-16.9); MCHC 32.8 g/dl (32.0-35.9); MEAN CELL VOLUME 88.4 fl (80-96); MEAN PLT VOLUME 7.3 fl (7.5-11.1); PLATELET COUNT 266 10^3/uL (134-434); RBC 2.89 M/mm3 (4.00-5.60); RDW 17.8 % (11.9-15.9); WHITE BLOOD COUNT 22.2 K/mm3 (4.0-10.0)
[2023-09-19 16:19] LABS: BILIRUBIN,DIRECT 0.1 mg/dL (0.0-0.2)
[2023-09-19 16:21] LABS: BILIRUBIN,TOTAL 0.4 mg/dL (0.2-1); TOT PROT 6.2 g/dl (6.4-8.2)
[2023-09-19 16:37] LABS: POTASSIUM 3.2 mmol/L (3.5-5.1)
[2023-09-19 16:39] LABS: BLOOD UREA NITROGEN 36.1 mg/dL (7-18); CALCIUM 7.5 mg/dL (8.5-10.1)
[2023-09-19 16:40] LABS: ALBUMIN 1.7 g/dl (3.4-5.0)
[2023-09-19 16:44] LABS: BILIRUBIN,TOTAL 0.4 mg/dL (0.2-1); TOT PROT 5.6 g/dl (6.4-8.2)
[2023-09-19] MEDS: PANTOPRAZOLE SODIUM 40 MG VIAL IVPUSH ONE (18:32)
[2023-09-19] MEDS: LACTATED RINGERS SOLUTION 1,000 ML IV SCH (18:35)
[2023-09-19] MEDS: PANTOPRAZOLE SODIUM 80 MG in SODIUM CHLORIDE 100 ML IVPB SCH (18:46)
[2023-09-19] MEDS: POTASSIUM CHLORIDE ORAL LIQUID 20 MEQ/15 ML PO ONE (18:59)
[2023-09-19] MEDS ORDERED: PHENYLEPHRINE NS PREMIX 50,000 MCG/500 ML BAG IVPB SCH (20:30)
[2023-09-19] MEDS ORDERED: PANTOPRAZOLE 40 MG TABLET PO SCH (22:00)
[2023-09-20 07:42] LABS: HEMATOCRIT 23.5 % (35.4-49); HEMOGLOBIN 7.6 GM/dL (11.7-16.9); MCH 29.4 pg (25.7-33.7); MCHC 32.3 g/dl (32.0-35.9); MEAN CELL VOLUME 90.9 fl (80-96); MEAN PLT VOLUME 7.5 fl (7.5-11.1); PLATELET COUNT 223 10^3/uL (134-434); RBC 2.59 M/mm3 (4.00-5.60); RDW 17.3 % (11.9-15.9); WHITE BLOOD COUNT 20.8 K/mm3 (4.0-10.0)
[2023-09-20 07:58] LABS: POTASSIUM 3.4 mmol/L (3.5-5.1)
[2023-09-20 08:00] LABS: BLOOD UREA NITROGEN 42.1 mg/dL (7-18); CALCIUM 7.5 mg/dL (8.5-10.1)
[2023-09-20 08:04] LABS: CREATININE 4.4 mg/dL (0.55-1.3)
[2023-09-20 09:17] LABS: ANISOCYTOSIS 0; MACROCYTOSIS 0
[2023-09-20] MEDS: POTASSIUM CHLORIDE ORAL LIQUID 20 MEQ/15 ML PO ONE (12:21)
[2023-09-20] MEDS ORDERED: KETAMINE HCL 200 MG/20 ML VIAL ONE (15:12)
[2023-09-20] MEDS ORDERED: TETRACAINE/BENZOCAINE/BUTAMBEN 20 GM SPR TP ONE (15:12)
[2023-09-20] MEDS: KCL 10 MEQ IVPB 10 MEQ/100 ML INFUS.BAG IVPB SCH (15:45)
[2023-09-20] MEDS: PANTOPRAZOLE SODIUM 40 MG VIAL IVPUSH SCH (21:36)
[2023-09-21] MEDS: SUCRALFATE 1 GM/10 ML UNIT DOSE CUPS PO ONE
[2023-09-21] MEDS ORDERED: SUCRALFATE 1 GM/10 ML UNIT DOSE CUPS PO ONE (22:03)
[2023-09-22 06:33] LABS: BASO % 0.3 % (0-2.0); EOS % 2.4 % (0-4.5); HEMATOCRIT 21.9 % (35.4-49); HEMOGLOBIN 7.2 GM/dL (11.7-16.9); LYMPH % 21.5 % (8-40); MCH 29.8 pg (25.7-33.7); MCHC 32.9 g/dl (32.0-35.9); MEAN CELL VOLUME 90.7 fl (80-96); MEAN PLT VOLUME 7.8 fl (7.5-11.1); MONO % 6.8 % (3.8-10.2); PLATELET COUNT 243 10^3/uL (134-434); RBC 2.41 M/mm3 (4.00-5.60); RDW 16.9 % (11.9-15.9)
[2023-09-22 06:48] LABS: POTASSIUM 3.7 mmol/L (3.5-5.1)
[2023-09-22 06:50] LABS: BLOOD UREA NITROGEN 53.4 mg/dL (7-18); MAGNESIUM 1.6 mg/dL (1.8-2.4)
[2023-09-22 06:51] LABS: CALCIUM 7.4 mg/dL (8.5-10.1)
[2023-09-22 06:53] LABS: CREATININE 5.3 mg/dL (0.55-1.3)
[2023-09-22 06:54] LABS: TOT PROT 5.8 g/dl (6.4-8.2)
[2023-09-22 06:56] LABS: BILIRUBIN,TOTAL 0.4 mg/dL (0.2-1)
[2023-09-22 06:58] LABS: ALBUMIN 1.4 g/dl (3.4-5.0)
[2023-09-22 10:13] LABS: BASO % 0.4 % (0-2.0); EOS % 2.9 % (0-4.5); HEMATOCRIT 21.8 % (35.4-49); LYMPH % 20.8 % (8-40); MCH 29.1 pg (25.7-33.7); MCHC 32.1 g/dl (32.0-35.9); MEAN CELL VOLUME 90.8 fl (80-96); MEAN PLT VOLUME 7.6 fl (7.5-11.1); MONO % 6.4 % (3.8-10.2); NEUT % 69.5 % (42.8-82.8); PLATELET COUNT 235 10^3/uL (134-434); RDW 16.6 % (11.9-15.9); WHITE BLOOD COUNT 15.4 K/mm3 (4.0-10.0)
[2023-09-23] MEDS: MELATONIN 5 MG TABLETS PO ONE (00:33)
[2023-09-23 06:38] LABS: EPI CELLS >36 /uL (0-25.1); HYALINE CASTS 24 /uL (0-3.1); URINE APPEARANCE TURBID; URINE BILIRUBIN NEGATIVE (NEGATIVE); URINE COLOR YELLOW; URINE GLUCOSE (UA) TRACE (NEGATIVE); URINE KETONE TRACE (NEGATIVE); URINE LEUK ESTERASE TRACE (NEGATIVE); URINE NITRITE NEGATIVE (NEGATIVE); URINE PROTEIN 4+ (NEGATIVE); URINE UROBILINOGEN 0.2 mg/dL (0.2-1.0); URINE WBC 382 /uL (0-25.8)
[2023-09-23 06:40] LABS: BASO % 0.3 % (0-2.0); EOS % 0.9 % (0-4.5); HEMATOCRIT 23.5 % (35.4-49); HEMOGLOBIN 7.8 GM/dL (11.7-16.9); MCH 29.6 pg (25.7-33.7); MCHC 33.4 g/dl (32.0-35.9); MEAN CELL VOLUME 88.6 fl (80-96); MONO % 6.4 % (3.8-10.2); NEUT % 74.4 % (42.8-82.8); PLATELET COUNT 268 10^3/uL (134-434); RBC 2.65 M/mm3 (4.00-5.60); RDW 16.8 % (11.9-15.9); WHITE BLOOD COUNT 17.8 K/mm3 (4.0-10.0)
[2023-09-23 07:03] LABS: POTASSIUM 3.6 mmol/L (3.5-5.1)
[2023-09-23 07:10] LABS: CALCIUM 7.5 mg/dL (8.5-10.1)
[2023-09-23 07:11] LABS: ALBUMIN 1.4 g/dl (3.4-5.0); BLOOD UREA NITROGEN 57.6 mg/dL (7-18)
[2023-09-23 07:14] LABS: PHOSPHOROUS 6.9 mg/dL (2.5-4.9)
[2023-09-23 07:15] LABS: BILIRUBIN,TOTAL 0.6 mg/dL (0.2-1); TOT PROT 5.4 g/dl (6.4-8.2)
[2023-09-23 08:13] LABS: URINE BACTERIA 3.8 /uL (0-1359); URINE RBC 21.9 /uL (0-23.9)
[2023-09-23] MEDS ORDERED: SODIUM CHLORIDE 0.45% 1,000 ML with SODIUM BICARBONATE 8.4% - 50 MEQ IV SCH (10:45)
[2023-09-23] MEDS: SODIUM BICARBONATE 8.4% 50 MEQ/50 ML DISP.SYRIN IVPUSH ONE (12:25)
[2023-09-23] MEDS: SODIUM BICARBONATE 8.4% - 50 MEQ in SODIUM CHLORIDE 0.45% 1,000 ML IV SCH (12:25)
[2023-09-23] MEDS: KCL 10 MEQ IVPB 10 MEQ/100 ML INFUS.BAG IVPB SCH (12:26)
[2023-09-23] MEDS: VANCOMYCIN ORAL SOLUTION 125 MG/2.5 ML PO SCH (17:03)
[2023-09-24 07:06] LABS: HEMOGLOBIN 7.3 GM/dL (11.7-16.9); MCH 29.5 pg (25.7-33.7); MCHC 32.9 g/dl (32.0-35.9); MEAN CELL VOLUME 89.6 fl (80-96); PLATELET COUNT 281 10^3/uL (134-434); RBC 2.46 M/mm3 (4.00-5.60); RDW 16.8 % (11.9-15.9); WHITE BLOOD COUNT 18.1 K/mm3 (4.0-10.0)
[2023-09-24 07:14] LABS: POTASSIUM 3.8 mmol/L (3.5-5.1)
[2023-09-24 07:20] LABS: ALBUMIN 1.2 g/dl (3.4-5.0); CALCIUM 7.6 mg/dL (8.5-10.1)
[2023-09-24 07:21] LABS: BLOOD UREA NITROGEN 65.4 mg/dL (7-18); CREATININE 6.4 mg/dL (0.55-1.3)
[2023-09-24 07:23] LABS: BILIRUBIN,TOTAL 0.4 mg/dL (0.2-1); TOT PROT 5.2 g/dl (6.4-8.2)
[2023-09-24 07:34] LABS: BILIRUBIN,DIRECT 0.2 mg/dL (0.0-0.2)
[2023-09-24] MEDS ORDERED: MIDAZOLAM HCL 2 MG/2 ML SINGLE DOSE VIAL ONE ×2 (09:37→09:46)
[2023-09-24] MEDS ORDERED: PROPOFOL 20 ML ONE (09:37)
[2023-09-24] MEDS ORDERED: LIDOCAINE HCL/PF 2% SDV 5ML VIAL ONE (09:37)
[2023-09-24] MEDS ORDERED: SEVOFLURANE 250 ML BTL ONE (09:39)
[2023-09-24] MEDS: ALBUMIN HUMAN 5% 250 ML IV SOLUTION IV ONE (09:45)
[2023-09-24] MEDS ORDERED: ROCURONIUM BROMIDE 50 MG/5 ML SYRINGE ONE ×3 (09:56→12:11)
[2023-09-24] MEDS ORDERED: BUPIVACAINE HCL/PF 0.25% (2.5MG/ML) 10 ML VIAL ONE (10:06)
[2023-09-24] MEDS ORDERED: VASopressin 20 UNITS/ML VIAL IV ONE (10:59)
[2023-09-24] MEDS ORDERED: CALCIUM CHLORIDE 1 GM/10 ML *DISP.SYRIN ONE (11:28)
[2023-09-24] MEDS: BUPIVACAINE HCL/PF 0.25% (2.5MG/ML) 10 ML VIAL IJ ONE (12:14)
[2023-09-24] MEDS ORDERED: NOREPINEPHRINE BITARTRATE 4 MG/4 ML ML IV ONE (12:37)
[2023-09-24] MEDS ORDERED: BENZOIN/ALOE VERA/STORAX/TOLU 58 ML BOTTLE ONE (13:53)
[2023-09-24] MEDS: MIDAZOLAM HCL 2 MG/2 ML SINGLE DOSE VIAL IVPUSH ONE (14:15)
[2023-09-24] MEDS: FENTANYL CITRATE/PF 50 MCG/ML VIAL IVPUSH ONE (14:30)
[2023-09-24] MEDS: DEXMEDETOMIDINE PREMIX 400 MCG/100 ML BAG IVPB SCH (14:40)
[2023-09-24] MEDS: SODIUM BICARBONATE 8.4% 50 MEQ/50 ML DISP.SYRIN IVPUSH SCH (14:45)
[2023-09-24] MEDS ORDERED: DEXMEDETOMIDINE PREMIX 400 MCG/100 ML BAG IVPB ONE (15:31)
[2023-09-24] MEDS ORDERED: DEXMEDETOMIDINE PREMIX 400 MCG/100 ML BAG IVPB SCH (15:45)
[2023-09-24] MEDS: MEROPENEM 2 GM in DEXTROSE 5%-WATER 100 ML IVPB ONE (16:05)
[2023-09-24] MEDS ORDERED: PROPOFOL 1,000,000 MCG/100 ML VIAL ONE (16:21)
[2023-09-24] MEDS: PROPOFOL 1,000,000 MCG/100 ML VIAL IVPB SCH (16:30)
[2023-09-24 17:43] LABS: ARTERIAL BLD GAS O2 SATURATION 92.8 % (95-98); ARTERIAL BLOOD GAS BASE EXCESS -17.3 mmol/L (-2-2); ARTERIAL BLOOD GAS PO2 87.5 mmHg (80-100)
[2023-09-24 17:49] LABS: ARTERIAL BLOOD GAS pH 7.083 (7.350-7.450)
[2023-09-24 17:51] LABS: VENT MODE V-AC; VENT RATE 14
[2023-09-24] MEDS ORDERED: DEXTROSE 50%-WATER 25 GM/50 ML DISP.SYRIN ONE (18:24)
[2023-09-24] MEDS: VANCOMYCIN 1,000 MG in DEXTROSE 5%-WATER - 250 ML IVPB ONE (18:27)
[2023-09-24] MEDS ORDERED: FENTANYL IVPB 500 MCG/100 ML BAG IVPB SCH (20:15)
[2023-09-24] MEDS: NOREPINEPHRINE 0.9 % NACL 8 MG/250 ML BAG IVPB SCH (20:25)
[2023-09-24] MEDS: FENTANYL NS IVPB 500 MCG/100 ML BAG IVPB SCH (20:29)
[2023-09-24 20:44] LABS: ARTERIAL BLD GAS O2 SATURATION 98.1 % (95-98); ARTERIAL BLOOD GAS BASE EXCESS -17.1 mmol/L (-2-2)
[2023-09-24 20:46] LABS: ARTERIAL BLOOD GAS pH 7.132 (7.350-7.450)
[2023-09-24 20:47] LABS: VENT RATE 16
[2023-09-24 21:17] LABS: HEMATOCRIT 26.7 % (35.4-49); HEMOGLOBIN 8.8 GM/dL (11.7-16.9); MCH 29.4 pg (25.7-33.7); MCHC 32.8 g/dl (32.0-35.9); MEAN CELL VOLUME 89.6 fl (80-96); MEAN PLT VOLUME 8.1 fl (7.5-11.1); PLATELET COUNT 336 10^3/uL (134-434); RBC 2.98 M/mm3 (4.00-5.60); WHITE BLOOD COUNT 21.9 K/mm3 (4.0-10.0)
[2023-09-24 23:37] LABS: ANISOCYTOSIS 1+; MACROCYTOSIS 1+; OVALOCYTE 1+; TOXIC GRANULATION 1+
[2023-09-24 23:39] LABS: PLATELET ESTIMATE ADEQUATE
[2023-09-25] MEDS: MEROPENEM 1 GM in DEXTROSE 5%-WATER 100 ML IVPB SCH (01:29)
[2023-09-25] MEDS: VASopressin 40 UNITS/100 ML BAG IV SCH (01:53)
[2023-09-25 06:52] LABS: BASO % 0.4 % (0-2.0); EOS % 1.1 % (0-4.5); HEMATOCRIT 27.3 % (35.4-49); HEMOGLOBIN 9.1 GM/dL (11.7-16.9); LYMPH % 18.7 % (8-40); MCH 29.5 pg (25.7-33.7); MCHC 33.3 g/dl (32.0-35.9); MEAN CELL VOLUME 88.7 fl (80-96); MONO % 5.6 % (3.8-10.2); NEUT % 74.2 % (42.8-82.8); PLATELET COUNT 369 10^3/uL (134-434); RBC 3.08 M/mm3 (4.00-5.60); RDW 16.6 % (11.9-15.9); WHITE BLOOD COUNT 19.5 K/mm3 (4.0-10.0)
[2023-09-25 07:30] LABS: CHLORIDE 103 mmol/L (98-107); POTASSIUM 4.4 mmol/L (3.5-5.1); SODIUM 131 mmol/L (136-145)
[2023-09-25 07:34] LABS: ANION GAP 18 mmol/L (4-13); CALCIUM 7.2 mg/dL (8.5-10.1); CO2 11 mmol/L (21-32)
[2023-09-25 07:35] LABS: BLOOD UREA NITROGEN 74.9 mg/dL (7-18); GLUCOSE,RANDOM 213 mg/dL (74-106)
[2023-09-25 07:37] LABS: CREATININE 6.7 mg/dL (0.55-1.3)
[2023-09-25 07:38] LABS: SGPT/ALT 21 U/L (13-61)
[2023-09-25 07:39] LABS: BILIRUBIN,TOTAL 1.3 mg/dL (0.2-1)
[2023-09-25 07:41] LABS: SGOT/AST 17 U/L (15-37)
[2023-09-25 07:43] LABS: TOT PROT 5.6 g/dl (6.4-8.2)
[2023-09-25 08:33] LABS: ALBUMIN 1.8 g/dl (3.4-5.0); ALK PHOS 349 U/L (45-117); PHOSPHOROUS 10.1 mg/dL (2.5-4.9)
[2023-09-25 09:44] LABS: ARTERIAL BLD GAS O2 SATURATION 92.6 % (95-98); ARTERIAL BLOOD GAS BASE EXCESS -15.5 mmol/L (-2-2); ARTERIAL BLOOD GAS PO2 77.4 mmHg (80-100)
[2023-09-25 09:46] LABS: VENT MODE AC; VENT RATE 16
[2023-09-25 09:48] LABS: ARTERIAL BLOOD GAS pH 7.191 (7.350-7.450)
[2023-09-25] MEDS ORDERED: SODIUM BICARBONATE 8.4% 50 MEQ/50 ML DISP.SYRIN ONE (14:28)
[2023-09-25] MEDS: SODIUM BICARBONATE 8.4% 50 MEQ/50 ML VIAL IVPUSH ONE ×2 (14:33→16:29)
[2023-09-25] MEDS: HEPARIN NA (PORCINE) 5,000 UNITS/ML 1ML VIAL SQ SCH (14:36)
[2023-09-25 17:09] LABS: ARTERIAL BLD GAS O2 SATURATION 94.3 % (95-98); ARTERIAL BLOOD GAS BASE EXCESS -14.5 mmol/L (-2-2); ARTERIAL BLOOD GAS PO2 81.8 mmHg (80-100); ARTERIAL BLOOD GAS pH 7.234 (7.350-7.450)
[2023-09-25 17:10] LABS: ALLENS TEST POSITIVE; VENT MODE A/C
[2023-09-25 17:11] LABS: VENT RATE 16
[2023-09-25] MEDS ORDERED: SODIUM CHLORIDE 250 ML IV PRN (18:00)
[2023-09-25] MEDS: ALBUMIN HUMAN 25% 12.5 GM/50 ML VIAL IV SCH (18:24)
[2023-09-26 06:21] LABS: ARTERIAL BLD GAS O2 SATURATION 97.9 % (95-98); ARTERIAL BLOOD GAS BASE EXCESS -18.7 mmol/L (-2-2); ARTERIAL BLOOD GAS PO2 112.6 mmHg (80-100); ARTERIAL BLOOD GAS pH 7.298 (7.350-7.450)
[2023-09-26 06:34] LABS: VENT MODE A/C; VENT RATE 16
[2023-09-26 06:38] LABS: ARTERIAL BLOOD GAS PCO2 < 16.70 mmHg (35-45)
[2023-09-26 07:28] LABS: CHLORIDE 102 mmol/L (98-107); POTASSIUM 3.4 mmol/L (3.5-5.1); SODIUM 134 mmol/L (136-145)
[2023-09-26 07:36] LABS: ALBUMIN 1.6 g/dl (3.4-5.0); ANION GAP 18 mmol/L (4-13); BLOOD UREA NITROGEN 62.7 mg/dL (7-18); CO2 14 mmol/L (21-32); GLUCOSE,RANDOM 126 mg/dL (74-106); MAGNESIUM 1.9 mg/dL (1.8-2.4)
[2023-09-26 07:39] LABS: PHOSPHOROUS 8.4 mg/dL (2.5-4.9); SGOT/AST 12 U/L (15-37); SGPT/ALT 16 U/L (13-61)
[2023-09-26 07:41] LABS: BILIRUBIN,TOTAL 0.6 mg/dL (0.2-1); TOT PROT 5.2 g/dl (6.4-8.2)
[2023-09-26 07:42] LABS: ALK PHOS 368 U/L (45-117)
[2023-09-26 07:50] LABS: BASO % 0.1 % (0-2.0); CALCIUM 6.5 mg/dL (8.5-10.1); EOS % 2.1 % (0-4.5); HEMATOCRIT 25.4 % (35.4-49); HEMOGLOBIN 8.5 GM/dL (11.7-16.9); LYMPH % 8.9 % (8-40); MCH 29.4 pg (25.7-33.7); MCHC 33.5 g/dl (32.0-35.9); MEAN CELL VOLUME 87.8 fl (80-96); MEAN PLT VOLUME 7.8 fl (7.5-11.1); MONO % 4.8 % (3.8-10.2); NEUT % 84.1 % (42.8-82.8); PLATELET COUNT 325 10^3/uL (134-434); RDW 16.7 % (11.9-15.9); WHITE BLOOD COUNT 16.5 K/mm3 (4.0-10.0)
[2023-09-26] MEDS ORDERED: SODIUM CHLORIDE 250 ML IV PRN (08:15)
[2023-09-26 08:39] LABS: ARTERIAL BLD GAS O2 SATURATION 95.7 % (95-98); ARTERIAL BLOOD GAS BASE EXCESS -11.5 mmol/L (-2-2); ARTERIAL BLOOD GAS PO2 86.6 mmHg (80-100); ARTERIAL BLOOD GAS pH 7.285 (7.350-7.450)
[2023-09-26 08:41] LABS: ALLENS TEST POSITIVE
[2023-09-26 08:42] LABS: VENT MODE A/C; VENT RATE 16
[2023-09-26] MEDS: VANCOMYCIN/WATER FOR INJ (PEG) 1,000 MG/200 ML BAG IVPB ONE (14:14)
[2023-09-26] MEDS ORDERED: FUROSEMIDE 40 MG/4 ML INJECTABLE VIAL ONE (16:46)
[2023-09-26] MEDS: FUROSEMIDE 40 MG/4 ML INJECTABLE VIAL IVPUSH ONE (17:02)
[2023-09-26] MEDS ORDERED: hydrALAZINE HCL 20 MG/ML VIAL ONE (17:55)
[2023-09-26] MEDS: hydrALAZINE HCL 20 MG/ML VIAL IVPUSH ONE (18:03)
[2023-09-26 18:09] LABS: POTASSIUM 3.3 mmol/L (3.5-5.1)
[2023-09-26 18:11] LABS: ALBUMIN 1.6 g/dl (3.4-5.0); CALCIUM 7.1 mg/dL (8.5-10.1)
[2023-09-26 18:15] LABS: BILIRUBIN,TOTAL 0.7 mg/dL (0.2-1); CREATININE 4.7 mg/dL (0.55-1.3); TOT PROT 5.4 g/dl (6.4-8.2)
[2023-09-26] MEDS: KCL 10 MEQ IVPB 10 MEQ/100 ML INFUS.BAG IVPB SCH (18:20)
[2023-09-26] MEDS: POTASSIUM CHLORIDE ORAL LIQUID 20 MEQ/15 ML PO ONE (18:50)
[2023-09-26] MEDS: hydrALAZINE HCL 20 MG/ML VIAL IVPUSH PRN (20:40)
[2023-09-26] MEDS: KCL 20 MEQ PREMIX BAG 20 MEQ/100 ML INFUS.BAG IVPB ONE (21:38)
[2023-09-26] MEDS: ACETYLCYSTEINE 20% 200MG/ML 30 ML VIAL *FOR ORAL / INH USE ONLY NEB SCH (21:41)
[2023-09-26] MEDS: ALBUTEROL SO4 0.083% IH SOL 2.5 MG/3 ML VIAL.NEB. NEB SCH (21:41)
[2023-09-26] MEDS: CARVEDILOL 25 MG TABLET (FP) PO SCH (22:21)
[2023-09-27 06:07] LABS: ARTERIAL BLD GAS O2 SATURATION 96.7 % (95-98); ARTERIAL BLOOD GAS BASE EXCESS -8.4 mmol/L (-2-2); ARTERIAL BLOOD GAS PO2 90.8 mmHg (80-100)
[2023-09-27 06:49] LABS: BASO % 0.4 % (0-2.0); EOS % 1.9 % (0-4.5); HEMATOCRIT 26.2 % (35.4-49); HEMOGLOBIN 8.7 GM/dL (11.7-16.9); LYMPH % 15.3 % (8-40); MCH 29.4 pg (25.7-33.7); MCHC 33.2 g/dl (32.0-35.9); MEAN CELL VOLUME 88.5 fl (80-96); MEAN PLT VOLUME 7.6 fl (7.5-11.1); MONO % 6.8 % (3.8-10.2); NEUT % 75.6 % (42.8-82.8); PLATELET COUNT 354 10^3/uL (134-434); RBC 2.97 M/mm3 (4.00-5.60); WHITE BLOOD COUNT 15.5 K/mm3 (4.0-10.0)
[2023-09-27 07:06] LABS: CHLORIDE 104 mmol/L (98-107); POTASSIUM 3.6 mmol/L (3.5-5.1); SODIUM 138 mmol/L (136-145)
[2023-09-27 07:07] LABS: ALBUMIN 1.5 g/dl (3.4-5.0); ANION GAP 16 mmol/L (4-13); BLOOD UREA NITROGEN 47.3 mg/dL (7-18); CO2 19 mmol/L (21-32); GLUCOSE,RANDOM 111 mg/dL (74-106); MAGNESIUM 1.9 mg/dL (1.8-2.4)
[2023-09-27 07:10] LABS: PHOSPHOROUS 6.7 mg/dL (2.5-4.9); SGPT/ALT 16 U/L (13-61)
[2023-09-27 07:12] LABS: CREATININE 5.1 mg/dL (0.55-1.3); SGOT/AST 22 U/L (15-37)
[2023-09-27 07:13] LABS: BILIRUBIN,TOTAL 0.7 mg/dL (0.2-1); TOT PROT 5.2 g/dl (6.4-8.2)
[2023-09-27 07:33] LABS: ALK PHOS 505 U/L (45-117); CALCIUM 6.8 mg/dL (8.5-10.1)
[2023-09-27] MEDS: ACETYLCYSTEINE 20% 200MG/ML 4 ML VIAL *FOR ORAL / INH USE ONLY NEB SCH (08:05)
[2023-09-27] MEDS: ROSUVASTATIN CA 20 MG TABLET PO SCH (09:00)
[2023-09-27] MEDS: hydrALAZINE HCL 50 MG TABLET (FP) PO SCH (13:20)
[2023-09-27] MEDS ORDERED: SODIUM CHLORIDE 250 ML IV PRN (15:15)
[2023-09-27] MEDS: VANCOMYCIN/WATER FOR INJ (PEG) 1,000 MG/200 ML BAG IVPB ONE (21:26)
[2023-09-28 07:31] LABS: MAGNESIUM 1.6 mg/dL (1.8-2.4)
[2023-09-28 07:33] LABS: PHOSPHOROUS 7.4 mg/dL (2.5-4.9)
[2023-09-28 07:59] LABS: HEMATOCRIT 26.4 % (35.4-49); HEMOGLOBIN 8.6 GM/dL (11.7-16.9); MCHC 32.4 g/dl (32.0-35.9); MEAN CELL VOLUME 89.4 fl (80-96); MEAN PLT VOLUME 7.2 fl (7.5-11.1); PLATELET COUNT 391 10^3/uL (134-434); RBC 2.95 M/mm3 (4.00-5.60); RDW 17.1 % (11.9-15.9); WHITE BLOOD COUNT 19.1 K/mm3 (4.0-10.0)
[2023-09-28 09:11] LABS: CHLORIDE 103 mmol/L (98-107); POTASSIUM 3.6 mmol/L (3.5-5.1); SODIUM 138 mmol/L (136-145)
[2023-09-28 09:13] LABS: BLOOD UREA NITROGEN 52.7 mg/dL (7-18); GAMMA GLUTAMYL TRANSPEPTIDASE 476 U/L (5-85)
[2023-09-28 09:15] LABS: ANION GAP 20 mmol/L (4-13); CO2 14 mmol/L (21-32); GLUCOSE,RANDOM 132 mg/dL (74-106)
[2023-09-28 09:17] LABS: CREATININE 5.7 mg/dL (0.55-1.3)
[2023-09-28 09:19] LABS: CALCIUM 6.9 mg/dL (8.5-10.1)
[2023-09-28] MEDS: EPOETIN ALFA-EPBX 10,000 UNIT/ML VIAL IVPUSH ONE (10:31)
[2023-09-28] MEDS: CALCIUM GLUC IN NACL, ISO-OSM 1 GM/50 ML BAG IVPB ONE (11:54)
[2023-09-29] MEDS ORDERED: METOPROLOL TARTRATE 5 MG/5 ML VIAL ONE (06:07)
[2023-09-29] MEDS: METOPROLOL TARTRATE 5 MG/5 ML VIAL IVPUSH STA (06:12)
[2023-09-29 07:51] LABS: BASO % 0.5 % (0-2.0); EOS % 3.3 % (0-4.5); HEMATOCRIT 26.6 % (35.4-49); HEMOGLOBIN 8.9 GM/dL (11.7-16.9); MCH 29.3 pg (25.7-33.7); MCHC 33.3 g/dl (32.0-35.9); MEAN CELL VOLUME 87.9 fl (80-96); MEAN PLT VOLUME 7.1 fl (7.5-11.1); MONO % 8.3 % (3.8-10.2); NEUT % 71.9 % (42.8-82.8); PLATELET COUNT 417 10^3/uL (134-434); RBC 3.02 M/mm3 (4.00-5.60); RDW 16.4 % (11.9-15.9); WHITE BLOOD COUNT 15.7 K/mm3 (4.0-10.0)
[2023-09-29 08:03] LABS: POTASSIUM 3.4 mmol/L (3.5-5.1)
[2023-09-29 08:07] LABS: ALBUMIN 1.3 g/dl (3.4-5.0); CALCIUM 7.4 mg/dL (8.5-10.1); MAGNESIUM 1.7 mg/dL (1.8-2.4)
[2023-09-29 08:10] LABS: CREATININE 4.8 mg/dL (0.55-1.3)
[2023-09-29 08:12] LABS: BILIRUBIN,TOTAL 0.5 mg/dL (0.2-1); TOT PROT 5.2 g/dl (6.4-8.2)
[2023-09-29] MEDS: amLODIPine BESYLATE 10 MG TABLET (FP) PO ONE (08:35)
[2023-09-29] MEDS: POTASSIUM CHLORIDE TABS 20 MEQ TABLET.ER (FP) PO ONE (08:42)
[2023-09-29] MEDS: MAGNESIUM SULF 50% (8.12 MEQ/2 ML-1 GM VIAL) IVPB ONE (08:42)
[2023-09-29] MEDS: VANCOMYCIN ORAL SOLUTION 125 MG/2.5 ML PO SCH (13:34)
[2023-09-30 07:28] LABS: HEMATOCRIT 26.4 % (35.4-49); MCH 29.7 pg (25.7-33.7); MEAN CELL VOLUME 87.3 fl (80-96); PLATELET COUNT 367 10^3/uL (134-434); RBC 3.02 M/mm3 (4.00-5.60); RDW 16.2 % (11.9-15.9); WHITE BLOOD COUNT 13.1 K/mm3 (4.0-10.0)
[2023-09-30 07:41] LABS: POTASSIUM 3.2 mmol/L (3.5-5.1)
[2023-09-30 07:43] LABS: BLOOD UREA NITROGEN 45.7 mg/dL (7-18); CALCIUM 7.3 mg/dL (8.5-10.1); MAGNESIUM 1.9 mg/dL (1.8-2.4)
[2023-09-30 07:47] LABS: CREATININE 5.2 mg/dL (0.55-1.3)
[2023-09-30 07:49] LABS: ALBUMIN 1.2 g/dl (3.4-5.0); BILIRUBIN,TOTAL 0.3 mg/dL (0.2-1); TOT PROT 5.1 g/dl (6.4-8.2)
[2023-09-30] MEDS: POTASSIUM CHLORIDE ORAL LIQUID 20 MEQ/15 ML PO ONE (09:58)
[2023-09-30] MEDS: KCL 10 MEQ IVPB 10 MEQ/100 ML INFUS.BAG IVPB SCH (10:01)
[2023-09-30] MEDS: TAMSULOSIN HCL 0.4 MG CAP PO SCH (10:25)
[2023-09-30] MEDS: INSULIN ASPART SLIDING SCALE (NOVOLOG) 1 VIAL SQ SCH (11:00)
[2023-09-30 11:48] LABS: ANISOCYTOSIS 1+; MACROCYTOSIS 0
[2023-09-30] MEDS: NIFEdipine E.R. 90 MG TABLET PO SCH (15:39)
[2023-09-30] MEDS: NYSTATIN 100,000 UNIT/GM TOPICAL CREAM 15 GM TUBE TP SCH (16:02)
[2023-09-30] MEDS ORDERED: SODIUM CHLORIDE 250 ML IV PRN (16:59)
[2023-09-30] MEDS ORDERED: EPOETIN ALFA-EPBX 10,000 UNIT/ML VIAL SQ ONE (16:59)
[2023-09-30] MEDS: SODIUM CHLORIDE 250 ML IV STA (18:29)
[2023-09-30] MEDS: VANCOMYCIN 500 MG in DEXTROSE 5%-WATER 100 ML IVPB ONE (20:16)
[2023-09-30] MEDS: CARVEDILOL 12.5 MG TABLET (FP) PO SCH (21:17)
[2023-09-30] MEDS: INSULIN (LEVEMIR) 100 UNITS/ML UNITS SQ SCH (21:21)
[2023-09-30] MEDS: SENNOSIDES 8.6MG TABLET (FP) PO SCH (21:23)
[2023-10-01 07:19] LABS: BASO % 0.9 % (0-2.0); EOS % 5.7 % (0-4.5); HEMATOCRIT 20.6 % (35.4-49); LYMPH % 23.6 % (8-40); MCH 29.6 pg (25.7-33.7); MCHC 33.3 g/dl (32.0-35.9); MEAN CELL VOLUME 88.9 fl (80-96); MEAN PLT VOLUME 6.9 fl (7.5-11.1); MONO % 9.8 % (3.8-10.2); PLATELET COUNT 321 10^3/uL (134-434); RBC 2.32 M/mm3 (4.00-5.60); RDW 16.1 % (11.9-15.9); WHITE BLOOD COUNT 12.5 K/mm3 (4.0-10.0)
[2023-10-01 07:27] LABS: CHLORIDE 106 mmol/L (98-107); POTASSIUM 3.1 mmol/L (3.5-5.1); SODIUM 140 mmol/L (136-145)
[2023-10-01 07:31] LABS: ALBUMIN 1.2 g/dl (3.4-5.0); ANION GAP 9 mmol/L (4-13); BLOOD UREA NITROGEN 28.6 mg/dL (7-18); CO2 25 mmol/L (21-32); GLUCOSE,RANDOM 91 mg/dL (74-106); MAGNESIUM 1.6 mg/dL (1.8-2.4)
[2023-10-01 07:34] LABS: CREATININE 3.9 mg/dL (0.55-1.3); SGOT/AST 17 U/L (15-37); SGPT/ALT 9 U/L (13-61)
[2023-10-01 07:35] LABS: HEMOGLOBIN 6.9 GM/dL (11.7-16.9)
[2023-10-01 07:36] LABS: BILIRUBIN,TOTAL 0.2 mg/dL (0.2-1); TOT PROT 4.7 g/dl (6.4-8.2)
[2023-10-01 07:42] LABS: ALK PHOS 473 U/L (45-117); CALCIUM 6.6 mg/dL (8.5-10.1)
[2023-10-01 08:20] LABS: BASO % 0.6 % (0-2.0); EOS % 5.3 % (0-4.5); HEMATOCRIT 27.4 % (35.4-49); HEMOGLOBIN 9.2 GM/dL (11.7-16.9); MCH 29.1 pg (25.7-33.7); MCHC 33.5 g/dl (32.0-35.9); MEAN CELL VOLUME 86.9 fl (80-96); MEAN PLT VOLUME 6.9 fl (7.5-11.1); NEUT % 60.1 % (42.8-82.8); PLATELET COUNT 361 10^3/uL (134-434); RBC 3.15 M/mm3 (4.00-5.60); RDW 15.8 % (11.9-15.9)
[2023-10-01 08:42] LABS: POTASSIUM 3.2 mmol/L (3.5-5.1)
[2023-10-01 08:43] LABS: CALCIUM 7.2 mg/dL (8.5-10.1)
[2023-10-01 08:44] LABS: ALBUMIN 1.3 g/dl (3.4-5.0); BLOOD UREA NITROGEN 31.2 mg/dL (7-18); MAGNESIUM 1.9 mg/dL (1.8-2.4)
[2023-10-01 08:47] LABS: CREATININE 4.1 mg/dL (0.55-1.3)
[2023-10-01 08:49] LABS: BILIRUBIN,TOTAL 0.3 mg/dL (0.2-1); TOT PROT 5.1 g/dl (6.4-8.2)
[2023-10-01] MEDS ORDERED: CARVEDILOL 25 MG TABLET (FP) PO SCH (10:00)
[2023-10-01] MEDS: FUROSEMIDE 40 MG/4 ML INJECTABLE VIAL IVPUSH SCH (10:06)
[2023-10-01] MEDS: POTASSIUM CHLORIDE ORAL LIQUID 20 MEQ/15 ML PO ONE (10:08)
[2023-10-01] MEDS: KCL 10 MEQ IVPB 10 MEQ/100 ML INFUS.BAG IVPB SCH (12:14)
[2023-10-01] MEDS: VANCOMYCIN 500 MG in DEXTROSE 5%-WATER - 100 ML IVPB ONE (17:36)
[2023-10-01] MEDS: FUROSEMIDE 40 MG/4 ML INJECTABLE VIAL IVPUSH ONE (17:57)
[2023-10-01] MEDS: MAGNESIUM 2GM/50ML STERILE WATER IVPB IVPB ONE (18:30)
[2023-10-02 07:20] LABS: BASO % 0.4 % (0-2.0); EOS % 3.6 % (0-4.5); HEMATOCRIT 27.5 % (35.4-49); LYMPH % 21.9 % (8-40); MCH 28.7 pg (25.7-33.7); MCHC 32.7 g/dl (32.0-35.9); MEAN CELL VOLUME 87.8 fl (80-96); MEAN PLT VOLUME 7.1 fl (7.5-11.1); MONO % 8.4 % (3.8-10.2); NEUT % 65.7 % (42.8-82.8); PLATELET COUNT 357 10^3/uL (134-434); RBC 3.13 M/mm3 (4.00-5.60); RDW 15.2 % (11.9-15.9); WHITE BLOOD COUNT 15.4 K/mm3 (4.0-10.0)
[2023-10-02 07:41] LABS: POTASSIUM 3.6 mmol/L (3.5-5.1)
[2023-10-02 07:51] LABS: BLOOD UREA NITROGEN 36.5 mg/dL (7-18)
[2023-10-02 07:52] LABS: ALBUMIN 1.2 g/dl (3.4-5.0); CALCIUM 7.3 mg/dL (8.5-10.1)
[2023-10-02 07:54] LABS: BILIRUBIN,TOTAL 0.3 mg/dL (0.2-1)
[2023-10-02 07:55] LABS: CREATININE 4.6 mg/dL (0.55-1.3)
[2023-10-02] MEDS: FAMOTIDINE 10 MG TABLET PO SCH (15:51)
[2023-10-02] MEDS: IRON SUCROSE INJECTION 200 MG in SODIUM CHLORIDE 100 ML IVPB ONE (19:46)
[2023-10-03] MEDS: ACETAMINOPHEN 325 MG TABLET (FP) PO PRN (12:06)
[2023-10-03 14:22] LABS: BASO % 0.4 % (0-2.0); EOS % 5.1 % (0-4.5); HEMATOCRIT 28.8 % (35.4-49); HEMOGLOBIN 9.6 GM/dL (11.7-16.9); LYMPH % 17.6 % (8-40); MCH 29.1 pg (25.7-33.7); MCHC 33.4 g/dl (32.0-35.9); MEAN CELL VOLUME 87.1 fl (80-96); MEAN PLT VOLUME 7.1 fl (7.5-11.1); MONO % 8.2 % (3.8-10.2); NEUT % 68.7 % (42.8-82.8); PLATELET COUNT 353 10^3/uL (134-434); RDW 15.6 % (11.9-15.9); WHITE BLOOD COUNT 15.2 K/mm3 (4.0-10.0)
[2023-10-03 14:47] LABS: CHLORIDE 100 mmol/L (98-107); POTASSIUM 3.8 mmol/L (3.5-5.1); SODIUM 135 mmol/L (136-145)
[2023-10-03 14:51] LABS: ALBUMIN 1.3 g/dl (3.4-5.0); ANION GAP 10 mmol/L (4-13); BLOOD UREA NITROGEN 38.7 mg/dL (7-18); CO2 24 mmol/L (21-32); GLUCOSE,RANDOM 76 mg/dL (74-106)
[2023-10-03 14:54] LABS: SGOT/AST 19 U/L (15-37); SGPT/ALT 7 U/L (13-61)
[2023-10-03 14:56] LABS: BILIRUBIN,TOTAL 0.4 mg/dL (0.2-1); TOT PROT 5.4 g/dl (6.4-8.2)
[2023-10-03 14:57] LABS: ALK PHOS 426 U/L (45-117)
[2023-10-03 14:58] LABS: CALCIUM 6.7 mg/dL (8.5-10.1)
[2023-10-03] MEDS: FUROSEMIDE 40 MG/4 ML INJECTABLE VIAL IVPUSH SCH (15:57)
[2023-10-04 08:10] LABS: POTASSIUM 3.6 mmol/L (3.5-5.1)
[2023-10-04 08:13] LABS: CALCIUM 7.1 mg/dL (8.5-10.1)
[2023-10-04 08:14] LABS: ALBUMIN 1.3 g/dl (3.4-5.0)
[2023-10-04 08:17] LABS: CREATININE 5.1 mg/dL (0.55-1.3)
[2023-10-04 08:18] LABS: BILIRUBIN,TOTAL 0.6 mg/dL (0.2-1); TOT PROT 5.4 g/dl (6.4-8.2)
[2023-10-04] MEDS ORDERED: SODIUM CHLORIDE 250 ML IV PRN (08:32)
[2023-10-04] MEDS ORDERED: EPOETIN ALFA-EPBX 10,000 UNIT/ML VIAL SQ ONE (08:32)
[2023-10-04] MEDS: NIFEdipine E.R. 90 MG TABLET PO SCH (11:05)
[2023-10-04] MEDS: CARVEDILOL 12.5 MG TABLET (FP) PO SCH (11:05)
[2023-10-04] MEDS: NYSTATIN 100,000 UNIT/GM TOPICAL CREAM 15 GM TUBE TP SCH (11:06)
[2023-10-04] MEDS: ACETYLCYSTEINE 20% 200MG/ML 4 ML VIAL *FOR ORAL / INH USE ONLY NEB SCH (12:01)
[2023-10-04] MEDS: ALBUTEROL SO4 0.083% IH SOL 2.5 MG/3 ML VIAL.NEB. NEB SCH (12:01)
[2023-10-04] MEDS: INSULIN ASPART SLIDING SCALE (NOVOLOG) 1 VIAL SQ SCH (12:23)
[2023-10-04] MEDS: MEROPENEM 1 GM in DEXTROSE 5%-WATER 100 ML IVPB SCH (12:39)
[2023-10-04] MEDS: VANCOMYCIN ORAL SOLUTION 125 MG/2.5 ML PO SCH (12:40)
[2023-10-04] MEDS: hydrALAZINE HCL 50 MG TABLET (FP) PO SCH (14:20)
[2023-10-04] MEDS: VANCOMYCIN/WATER FOR INJ (PEG) 1,000 MG/200 ML BAG IVPB ONE (14:20)
[2023-10-04] MEDS: HEPARIN NA (PORCINE) 5,000 UNITS/ML 1ML VIAL SQ SCH (14:21)
[2023-10-04] MEDS: ROSUVASTATIN CA 20 MG TABLET PO SCH (21:33)
[2023-10-04] MEDS: INSULIN (LEVEMIR) 100 UNITS/ML UNITS SQ SCH (21:38)
[2023-10-05] MEDS: ACETAMINOPHEN 325 MG TABLET (FP) PO PRN (05:33)
[2023-10-05] MEDS: FUROSEMIDE 40 MG TABLET (FP) PO SCH (10:26)
[2023-10-05] MEDS: TAMSULOSIN HCL 0.4 MG CAP PO SCH (10:26)
[2023-10-06 07:45] LABS: POTASSIUM 3.8 mmol/L (3.5-5.1)
[2023-10-06 07:48] LABS: BLOOD UREA NITROGEN 44.8 mg/dL (7-18); CALCIUM 7.2 mg/dL (8.5-10.1)
[2023-10-06 07:51] LABS: CREATININE 4.9 mg/dL (0.55-1.3)
[2023-10-06 07:52] LABS: BASO % 0.8 % (0-2.0); EOS % 6.4 % (0-4.5); HEMATOCRIT 29.3 % (35.4-49); HEMOGLOBIN 9.7 GM/dL (11.7-16.9); LYMPH % 28.8 % (8-40); MCHC 33.2 g/dl (32.0-35.9); MEAN CELL VOLUME 87.2 fl (80-96); MEAN PLT VOLUME 6.8 fl (7.5-11.1); MONO % 9.4 % (3.8-10.2); NEUT % 54.6 % (42.8-82.8); PLATELET COUNT 385 10^3/uL (134-434); RBC 3.36 M/mm3 (4.00-5.60); RDW 15.9 % (11.9-15.9); WHITE BLOOD COUNT 13.1 K/mm3 (4.0-10.0)
[2023-10-06] MEDS: VANCOMYCIN 500 MG in DEXTROSE 5%-WATER 100 ML IVPB ONE (17:21)
[2023-10-07 07:04] VITALS: RESP 18
[2023-10-07 07:26] LABS: BASO % 1.1 % (0-2.0); EOS % 7.3 % (0-4.5); HEMOGLOBIN 9.5 GM/dL (11.7-16.9); MCH 29.4 pg (25.7-33.7); MCHC 33.8 g/dl (32.0-35.9); MEAN PLT VOLUME 6.4 fl (7.5-11.1); MONO % 10.8 % (3.8-10.2); NEUT % 47.8 % (42.8-82.8); PLATELET COUNT 359 10^3/uL (134-434); RBC 3.22 M/mm3 (4.00-5.60); RDW 15.3 % (11.9-15.9); WHITE BLOOD COUNT 10.7 K/mm3 (4.0-10.0)
[2023-10-07 07:43] LABS: POTASSIUM 3.9 mmol/L (3.5-5.1)
[2023-10-07 07:48] LABS: CALCIUM 7.6 mg/dL (8.5-10.1)
[2023-10-07 07:49] LABS: ALBUMIN 1.4 g/dl (3.4-5.0); BLOOD UREA NITROGEN 45.3 mg/dL (7-18)
[2023-10-07 07:50] LABS: CREATININE 4.8 mg/dL (0.55-1.3)
[2023-10-07 07:52] LABS: BILIRUBIN,TOTAL 0.3 mg/dL (0.2-1); TOT PROT 5.6 g/dl (6.4-8.2)
[2023-10-07 16:22] VITALS: BP 134/57; PULSE 109; TEMP 98.6
== END 2023-10-07 18:49 | DRG 791 ==
LOC: JER 02:00 → JERBED 04:51 → J5S 09-18 19:27 → J2W 09-20 03:05 → JICU 09-24 12:21 → J4S 10-01 17:30
PROVIDERS: ADMIT Family Medicine; ATTEND Family Medicine
PROC: 0DNU4ZZ Release Omentum, Percutaneous Endoscopic Approach (ICD-10-PCS; 2023-09-18)
PROC: 0DNL4ZZ Release Transverse Colon, Percutaneous Endoscopic Approach (ICD-10-PCS; 2023-09-18)
PROC: 8E0W4CZ Robotic Assisted Procedure of Trunk Region, Percutaneous Endoscopic Approach (ICD-10-PCS; 2023-09-18)
PROC: 3E1 Administration, Physiological Systems and Anatomical Regions, Irrigation (ICD-10-PCS; 2023-09-18)
PROC: 0FT44ZZ Resection of Gallbladder, Percutaneous Endoscopic Approach (ICD-10-PCS; principal; 2023-09-18 10:30)
PROC: 0DB68ZX Excision of Stomach, Via Natural or Artificial Opening Endoscopic, Diagnostic (ICD-10-PCS; 2023-09-20)
PROC: 05HC33Z Insertion of Infusion Device into Left Basilic Vein, Percutaneous Approach (ICD-10-PCS; 2023-09-22)
PROC: 30233N1 Transfusion of Nonautologous Red Blood Cells into Peripheral Vein, Percutaneous Approach (ICD-10-PCS; 2023-09-22)
PROC: 0W9G0ZZ Drainage of Peritoneal Cavity, Open Approach (ICD-10-PCS; 2023-09-24)
PROC: 0DJ08ZZ Inspection of Upper Intestinal Tract, Via Natural or Artificial Opening Endoscopic (ICD-10-PCS; 2023-09-24)
PROC: 5A1945Z Respiratory Ventilation, 24-96 Consecutive Hours (ICD-10-PCS; 2023-09-24)
PROC: 0BH17EZ Insertion of Endotracheal Airway into Trachea, Via Natural or Artificial Opening (ICD-10-PCS; 2023-09-24)
PROC: 05HN33Z Insertion of Infusion Device into Left Internal Jugular Vein, Percutaneous Approach (ICD-10-PCS; 2023-09-24)
PROC: B544ZZA Ultrasonography of Left Jugular Veins, Guidance (ICD-10-PCS; 2023-09-24)
PROC: 06HY33Z Insertion of Infusion Device into Lower Vein, Percutaneous Approach (ICD-10-PCS; 2023-09-25)
DX: T85.520A Displacement of bile duct prosthesis, initial encounter (principal); A41.9 Sepsis, unspecified organism; J95.821 Acute postprocedural respiratory failure; R65.21 Severe sepsis with septic shock; A04.72 Enterocolitis due to Clostridium difficile, not specified as recurrent; K80.00 Calculus of gallbladder with acute cholecystitis without obstruction; N17.9 Acute kidney failure, unspecified; E11.22 Type 2 diabetes mellitus with diabetic chronic kidney disease; E66.01 Morbid (severe) obesity due to excess calories; E87.20 Acidosis, unspecified; K56.7 Ileus, unspecified; Z68.41 Body mass index [BMI] 40.0-44.9, adult; Y83.9 Surgical procedure, unspecified as the cause of abnormal reaction of the patient, or of later complication, without mention of misadventure at the time of the procedure; D64.9 Anemia, unspecified; E11.9 Type 2 diabetes mellitus without complications; E87.6 Hypokalemia; I12.9 Hypertensive chronic kidney disease with stage 1 through stage 4 chronic kidney disease, or unspecified chronic kidney disease; J98.11 Atelectasis; N18.9 Chronic kidney disease, unspecified; Z89.511 Acquired absence of right leg below knee; K91.840 Postprocedural hemorrhage of a digestive system organ or structure following a digestive system procedure; K91.89 Other postprocedural complications and disorders of digestive system; K29.70 Gastritis, unspecified, without bleeding; K20.90 Esophagitis, unspecified without bleeding
CPT/HCPCS: 31500; 36415; 36430; 36600; 71045-TC-FY; 74176-TC; 76775-TC; 76856-TC; 80048; 80053; 80076; 81003; 82272; 82330; 82550; 82803; 82962; 82977; 83605; 83735; 84100; 84484; 85025; 85027; 85610; 85730; 86803; 86850; 86900; 86901; 86922; 87040; 87070; 87075; 87086; 87186; 87205; 87324; 87340; 87449; 87493; 87635; 88304-TC; 88305-TC; 93005; 93010; 94002; 94010; 94640; 94760; 99285-25; G0480; J0131; J1644; J1756; J3490; P9038; P9058; Q5106